=== PATIENT | male | born 1940 | race Caucasian/White ===

== ENCOUNTER 2017-12-12 20:36 | Emergency (ER) | payer OTHER ==
[~2017-12-12] VITALS: Ht 188 cm; Wt 152.0 kg
[~2017-12-12 20:36] MED LIST: CIPRO500 MG PO; FLAGYL250 MG PO; ULTRAM 50MG50 MG PO; ZOFRAN ODT4 MG SL
[2017-12-12] MEDS ORDERED: COLCHICINE 0.6 MG TAB PO STA ×2 (21:08→23:28)
[2017-12-12] MEDS ORDERED: ACETAMINOPHEN 325 MG TAB PO ONE (21:15)
[2017-12-12 21:57] LABS: BASOPHILS % 0.3 % (0.0-1.0); EOSINOPHILS # (AUTO) 0.2 (0.0-0.4); EOSINOPHILS % 1.2 % (0.0-6.0); HEMATOCRIT 46.1 % (38.2-49.6); HEMOGLOBIN 15.1 g/dL (14.0-18.0); LYMPHOCYTES # (AUTO) 1.5 (1.0-3.2); LYMPHOCYTES % 12.2 % (18.0-39.1); MEAN CORPUSCULAR HEMOGLOBIN 29.9 pg (28-32); MEAN CORPUSCULAR HGB CONC 32.8 g/dL (31-35); MEAN CORPUSCULAR VOLUME 91.3 fL (81-99); MONOCYTES # (AUTO) 1.6 (0.2-0.8); MONOCYTES % 13.6 % (4.4-11.3); NEUTROPHILS # (AUTO) 8.7 (2.1-6.9); NEUTROPHILS % 72.3 % (38.7-80.0); PLATELET COUNT 143 x10e3/uL (140-360); RED BLOOD COUNT 5.05 x10e6/uL (4.3-5.7); RED CELL DISTRIBUTION WIDTH 12.7 % (11.7-14.4)
[2017-12-12 22:15] LABS: ALANINE AMINOTRANSFERASE 11 IU/L (0-55); ALBUMIN 3.4 g/dL (3.5-5.0); ALBUMIN/GLOBULIN RATIO 0.9 (0.8-2.0); ALKALINE PHOSPHATASE 59 IU/L (40-150); ANION GAP 15.4 mmol/L (8-16); BLOOD UREA NITROGEN 19 mg/dL (7-26); BUN/CREATININE RATIO 17 (6-25); CALCIUM 9.7 mg/dL (8.4-10.2); CARBON DIOXIDE 27 mmol/L (22-29); CHLORIDE 99 mmol/L (98-107); CREATININE, SERUM 1.14 mg/dL (0.72-1.25); EST GLOMERULAR FILTRATION RATE > 60 ML/MIN (60-); GLUCOSE 133 mg/dL (74-118); POTASSIUM 4.4 mmol/L (3.5-5.1); SODIUM 137 mmol/L (136-145)
--- NOTE | 2017-12-12 22:56 | Diagnostic Imaging Report ---
SHOULDER LEFT COMPLETE Comparison: None Clinical history: Left shoulder pain Findings: Limited by body habitus. Mild acromioclavicular degenerative changes. No acute fracture or dislocation. Impression: No acute bony abnormality Signed by: Dr Roslyn Landry MD on 12/12/2017 10:53 PM
[2017-12-12] MEDS ORDERED: INDOMETHACIN 25 MG CAP PO STA (23:28)
[2017-12-13 00:19] VITALS: BP 165/82
== END 2017-12-13 00:23 | disposition home or self-care (01) ==
LOC: ER 20:36
DX: M79.675 Pain in left toe(s) (principal); M10.072 Idiopathic gout, left ankle and foot
CPT/HCPCS: 36415; 80053; 84550; 85025; 99283

== ENCOUNTER 2018-03-13 06:15 | Inpatient (IN) | payer OTHER ==
[2018-03-12] MEDS: ALBUTEROL SULF 0.083% NEB SOLN 3 ML NEB NEB SCH (19:40)
[2018-03-13] VITALS (16 sets, daily range): BP systolic 94–142; BP diastolic 33–92
[~2018-03-13] VITALS: Ht 188 cm; Wt 166.5 kg
--- OUTSIDE RECORDS SUMMARY | 2018-03-13 06:18 | XMS REPORT | Continuity of Care Document ---
Author Author [facility] Interface Address Unknown Phone Unavailable Problems Problem Status Onset Date Classification Date Reported Comments Source Medications Medication Details Route Status Patient Instructions Ordering Provider Order Date Source Ciprofloxacin Hcl (Cipro) 500 Mg Tablet Twice A Day Active [facility] Metronidazole (Flagyl) 250 Mg Tablet Twice A Day Active [facility] Ondansetron (Zofran Odt) 4 Mg Tab.rapdis Every 6 Hours as needed for Nausea Active [facility] Tramadol Hcl (Ultram 50MG*) 50 Mg Tab Every 6 Hours as needed for Pain Active [facility] Allergies, Adverse Reactions, Alerts Substance Category Reaction Severity Reaction type Status Date Reported Comments Source No Known Drug Allergies Mild Allergy to Substance Active 06/29/2015 [facility] Immunizations Immunization Date Given Site Status Last Updated Comments Source Results Order Name Results Value Reference Range Date Interpretation Comments Source Automated blood basophil count (count/volume) Automated blood basophil count (count/volume) 0.0 0.0 - 0.1 12/12/2017 [facility] Automated blood basophil count as percentage of total leukocytes Automated blood basophil count as percentage of total leukocytes 0.3 0.0 - 1.0 12/12/2017 [facility] Automated blood eosinophil count Automated blood eosinophil count 0.2 0.0 - 0.4 12/12/2017 [facility] Automated blood eosinophil count as percentage of total leukocytes Automated blood eosinophil count as percentage of total leukocytes 1.2 0.0 - 6.0 12/12/2017 [facility] Automated blood hematocrit (volume fraction) Automated blood hematocrit (volume fraction) 46.1 38.2 - 49.6 12/12/2017 [facility] Automated blood lymphocyte count as percentage ot total leukocytes Automated blood lymphocyte count as percentage ot total leukocytes 12.2 18.0 - 39.1 12/12/2017 [facility] Automated blood monocyte count as percentage of total leukocytes Automated blood monocyte count as percentage of total leukocytes 13.6 4.4 - 11.3 12/12/2017 [facility] Automated blood neutrophil count Automated blood neutrophil count 8.7 2.1 - 6.9 12/12/2017 [facility] Automated blood platelet count (count/volume) Automated blood platelet count (count/volume) 143 140 - 360 12/12/2017 [facility] Automated blood segmented neutrophil count as percentage of total leukocytes Automated blood segmented neutrophil count as percentage of total leukocytes 72.3 38.7 - 80.0 12/12/2017 [facility] Automated erythrocyte mean corpuscular hemoglobin (mass per erythrocyte) Automated erythrocyte mean corpuscular hemoglobin (mass per erythrocyte) 29.9 28 - 32 12/12/2017 [facility] Automated erythrocyte mean corpuscular hemoglobin concentration measurement (mass/volume) Automated erythrocyte mean corpuscular hemoglobin concentration measurement (mass/volume) 32.8 31 - 35 12/12/2017 [facility] Automated erythrocyte mean corpuscular volume Automated erythrocyte mean corpuscular volume 91.3 81 - 99 12/12/2017 [facility] Blood erythrocytes automated count (number/volume) Blood erythrocytes automated count (number/volume) 5.05 4.3 - 5.7 12/12/2017 [facility] Blood hemoglobin measurement (moles/volume) Blood hemoglobin measurement (moles/volume) 15.1 14.0 - 18.0 12/12/2017 [facility] Blood leukocytes automated count (number/volume) Blood leukocytes automated count (number/volume) 12.07 4.8 - 10.8 12/12/2017 [facility] Blood lymphocytes count (number/volume) Blood lymphocytes count (number/volume) 1.5 1.0 - 3.2 12/12/2017 [facility] Blood monocytes automated count (number/volume) Blood monocytes automated count (number/volume) 1.6 0.2 - 0.8 12/12/2017 [facility] Estimated glomerular filtration rate (GFR) determination Estimated glomerular filtration rate (GFR) determination null 60 12/12/2017 [facility] Glucose measurement Glucose measurement 133 74 - 118 12/12/2017 [facility] Plasma globulin measurement (mass/volume) Plasma globulin measurement (mass/volume) 3.9 2.3 - 3.5 12/12/2017 [facility] Serum or plasma alanine aminotransferase measurement (enzymatic activity/volume) Serum or plasma alanine aminotransferase measurement (enzymatic activity/volume) 11 0 - 55 12/12/2017 [facility] Serum or plasma albumin measurement (mass/volume) Serum or plasma albumin measurement (mass/volume) 3.4 3.5 - 5.0 12/12/2017 [facility] Serum or plasma albumin/globulin mass ratio Serum or plasma albumin/globulin mass ratio 0.9 0.8 - 2.0 12/12/2017 [facility] Serum or plasma alkaline phosphatase measurement (enzymatic activity/volume) Serum or plasma alkaline phosphatase measurement (enzymatic activity/volume) 59 40 - 150 12/12/2017 [facility] Serum or plasma anion gap Serum or plasma anion gap 15.4 8 - 16 12/12/2017 [facility] Serum or plasma calcium measurement (mass/volume) Serum or plasma calcium measurement (mass/volume) 9.7 8.4 - 10.2 12/12/2017 [facility] Serum or plasma carbon dioxide, total measurement (moles/volume) Serum or plasma carbon dioxide, total measurement (moles/volume) 27 22 - 29 12/12/2017 [facility] Serum or plasma chloride measurement (moles/volume) Serum or plasma chloride measurement (moles/volume) 99 98 - 107 12/12/2017 [facility] Serum or plasma creatinine measurement (mass/volume) Serum or plasma creatinine measurement (mass/volume) 1.14 0.72 - 1.25 12/12/2017 [facility] Serum or plasma potassium measurement (moles/volume) Serum or plasma potassium measurement (moles/volume) 4.4 3.5 - 5.1 12/12/2017 [facility] Serum or plasma protein measurement (mass/volume) Serum or plasma protein measurement (mass/volume) 7.3 6.5 - 8.1 12/12/2017 [facility] Serum or plasma sodium measurement (moles/volume) Serum or plasma sodium measurement (moles/volume) 137 136 - 145 12/12/2017 [facility] Serum or plasma total bilirubin measurement (mass/volume) Serum or plasma total bilirubin measurement (mass/volume) 1.2 0.2 - 1.2 12/12/2017 [facility] Serum or plasma urea nitrogen measurement (mass/volume) Serum or plasma urea nitrogen measurement (mass/volume) 19 7 - 26 12/12/2017 [facility] Serum or plasma urea nitrogen/creatinine mass ratio Serum or plasma urea nitrogen/creatinine mass ratio 17 6 - 25 12/12/2017 [facility] Serum or plasma uric acid measurement (mass/volume) Serum or plasma uric acid measurement (mass/volume) 7.8 4.8 - 8.0 12/12/2017 [facility] Red Cell Distribution Width 12.7 11.7 - 14.4 12/12/2017 [facility] IM GRANULOCYTES % 0.4 0.0 - 1.0 12/12/2017 [facility] Absolute Immature Granulocyte (auto 0.05 0 - 0.1 12/12/2017 [facility] Aspartate Amino Transf (AST/SGOT) 14 5 - 34 12/12/2017 [facility] Serum or plasma amylase measurement (enzymatic activity/volume) Serum or plasma amylase measurement (enzymatic activity/volume) 62 25 - 125 11/16/2017 [facility] Serum or plasma lipase measurement (enzymatic activity/volume) Serum or plasma lipase measurement (enzymatic activity/volume) 19 8 - 78 11/16/2017 [facility] Automated urine sediment leukocyte count by microscopy (number/high power field) Automated urine sediment leukocyte count by microscopy (number/high power field) null 0 - 5 11/16/2017 [facility] Bacteria detection in urine sediment by light microscopy Bacteria detection in urine sediment by light microscopy RARE NONE 11/16/2017 [facility] Epithelial cells detection in urine sediment by light microscopy Epithelial cells detection in urine sediment by light microscopy RARE NONE 11/16/2017 [facility] Erythrocytes detection in urine sediment by light microscopy Erythrocytes detection in urine sediment by light microscopy null 0 - 5 11/16/2017 [facility] Specific gravity of Urine by Test strip Specific gravity of Urine by Test strip 1.025 1.010 - 1.025 11/16/2017 [facility] Urine clarity Urine clarity CLEAR CLEAR 11/16/2017 [facility] Urine color determination Urine color determination YELLOW YELLOW 11/16/2017 [facility] Urine erythrocytes detection Urine erythrocytes detection NEGATIVE NEGATIVE 11/16/2017 [facility] Urine glucose detection Urine glucose detection NEGATIVE NEGATIVE 11/16/2017 [facility] Urine ketones detection by automated test strip Urine ketones detection by automated test strip NEGATIVE NEGATIVE 11/16/2017 [facility] Urine leukocyte esterase detection by dipstick Urine leukocyte esterase detection by dipstick NEGATIVE NEGATIVE 11/16/2017 [facility] Urine nitrite detection Urine nitrite detection NEGATIVE NEGATIVE 11/16/2017 [facility] Urine pH measurement by automated test strip Urine pH measurement by automated test strip 6 5 - 7 11/16/2017 [facility] Urine protein measurement by test strip (mass/volume) Urine protein measurement by test strip (mass/volume) 1+ NEGATIVE 11/16/2017 [facility] Urine total bilirubin measurement (mass/volume) Urine total bilirubin measurement (mass/volume) NEGATIVE NEGATIVE 11/16/2017 [facility] Urine urobilinogen measurement by test strip (mass/volume) Urine urobilinogen measurement by test strip (mass/volume) 0.2 0.2 - 1 11/16/2017 [facility] Vital Signs Vital Sign Value Date Comments Source Encounters Location Location Details Encounter Type Encounter Number Reason For Visit Attending Provider ADM Date DC Date Status Source Departed Emergency Room [id number] CHAD RUBI MD 11/16/2017 11/16/2017 [facility] Departed Emergency Room [id number] ROSANA DAVID MD 12/12/2017 12/13/2017 [facility] Procedures Procedure Code Date Perfomer Comments Source Computed tomography of abdomen and pelvis with contrast [id number] 11/16/2017 [place] [facility]
[2018-03-13] MEDS ORDERED: ACETAMINOPHEN 1000 MG/100 ML IV STA (06:22)
[2018-03-13] MEDS ORDERED: ALBUTEROL SULF 0.083% NEB SOLN 3 ML NEB NEB STA (06:22)
[2018-03-13] MEDS ORDERED: CEFTRIAXONE SOD 1 GM VIAL IV ONE (06:30)
[2018-03-13] MEDS ORDERED: IPRATROPIUM BROMIDE 0.02% 2.5 ML NEB NEB ONE (06:30)
[2018-03-13] MEDS ORDERED: SODIUM CHLORIDE 0.9% 1000ML 1,000 ML IV ONE (06:30)
[2018-03-13] MEDS ORDERED: METHYLPREDNISOLONE SOD SUCC 125 MG/2ML VIAL IV ONE (06:30)
[2018-03-13 06:45] LABS: BASOPHILS % 0.2 % (0.0-1.0); EOSINOPHILS % 0.3 % (0.0-6.0); HEMATOCRIT 45.1 % (38.2-49.6); HEMOGLOBIN 14.2 g/dL (14.0-18.0); LYMPHOCYTES # (AUTO) 0.4 (1.0-3.2); LYMPHOCYTES % 3.9 % (18.0-39.1); MEAN CORPUSCULAR HEMOGLOBIN 29.8 pg (28-32); MEAN CORPUSCULAR HGB CONC 31.5 g/dL (31-35); MEAN CORPUSCULAR VOLUME 94.5 fL (81-99); MONOCYTES % 10.9 % (4.4-11.3); NEUTROPHILS % 83.9 % (38.7-80.0); PLATELET COUNT 135 x10e3/uL (140-360); RED BLOOD COUNT 4.77 x10e6/uL (4.3-5.7); RED CELL DISTRIBUTION WIDTH 13.4 % (11.7-14.4)
--- NOTE | 2018-03-13 06:55 | NUR ---
RECEIVED REPORT FROM HOLDEN STOVER LOG TUMBLER NURSE.
[2018-03-13] MEDS ORDERED: COLCRYS0.6 MG PO (06:57)
[2018-03-13 07:04] LABS: ALBUMIN 3.4 g/dL (3.5-5.0); ALBUMIN/GLOBULIN RATIO 1.1 (0.8-2.0); ANION GAP 15.5 mmol/L (8-16); CALCIUM 8.9 mg/dL (8.4-10.2); CREATININE, SERUM 1.43 mg/dL (0.72-1.25); POTASSIUM 4.5 mmol/L (3.5-5.1)
[2018-03-13 07:11] LABS: CREATINE KINASE MB 1.8 ng/mL (0-5.0)
[2018-03-13 07:32] LABS: B-TYPE NATRIURETIC PEPTIDE2 109.1 pg/mL (0-100)
--- NOTE | 2018-03-13 07:56 | NUR ---
LABORATORY CALLED AND NOTIFIED FOR NEW ORDERS OF PT AND PTT.
[2018-03-13 08:22] LABS: PROTHROMBIN TIME 14.1 seconds (11.9-14.5)
[2018-03-13 08:23] LABS: PARTIAL THROMBOPLASTIN TIME 29.7 seconds (23.8-35.5)
[2018-03-13] MEDS ORDERED: SODIUM CHLORIDE 0.9% 1000ML 1,000 ML IV STA (08:28)
--- NOTE | 2018-03-13 08:28 | Diagnostic Imaging Report ---
EXAMINATION: CHEST SINGLE (PORTABLE) COMPARISON: Chest x-ray report 06/29/2015. Images were not available for comparison. Correlation is made with CT of the abdomen/pelvis performed 11/16/2017 INDICATION: Cough, fever, shortness of breath DISCUSSION: Frontal view of the chest obtained at 0801 hours. HEART AND MEDIASTINUM: The heart is top normal in size. The aorta is mildly ectatic LINES: None. LUNGS: Low lung volumes. Minimal bibasilar atelectasis. No pneumonia or pulmonary edema. PLEURA: No pleural effusion or pneumothorax. 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 BONES AND SOFT TISSUES: No focal osseous lesion. The soft tissues are normal. IMPRESSION: Low lung findings with bibasilar atelectasis. Signed by: Dr. Rio Blood MD on 03/13/2018 8:25 AM
[2018-03-13] MEDS: AZITHROMYCIN 500MG/NS 250 ML 250 ML IV SCH (08:45)
[2018-03-13] MEDS: OSELTAMIVIR PHOSPHATE 75 MG CAP PO SCH ×2 (09:08→17:08)
--- NOTE | 2018-03-13 09:10 | NUR ---
MEDICAL LANGUAGE SPECIALIST CALLED FOR VENOUS DOPPLER ORDER BY [facility].
[2018-03-13 09:18] LABS: BAND NEUTROPHILS % (MANUAL) 18 %; LYMPHOCYTES % (MANUAL) 7 % (19-48); MONOCYTES % (MANUAL) 7 % (3.4-9.0); NEUTROPHILS % (MANUAL) 68 % (40-74)
[2018-03-13 09:19] LABS: PLATELET ESTIMATE ADEQUATE; PLATELET MORPHOLOGY COMMENT NORMAL; RBC MORPHOLOGY COMMENT NORMAL
[2018-03-13] MEDS ORDERED: IOPAMIDOL 370 MG/ML 200 ML INFUS..BTL INJ ONE (09:20)
[2018-03-13] MEDS ORDERED: SODIUM CHLORIDE 0.9% 50ML 50 ML ONE (09:20)
[2018-03-13 10:23] LABS: ABG PCO2 58 mmHg (41-51); ABG PH 7.26 (7.31-7.41)
[2018-03-13 10:24] LABS: ABG HCO3 26 mmol/L (23-28); ABG PO2 108 mmHg (80-105)
--- NOTE | 2018-03-13 10:45 | Diagnostic Imaging Report ---
CT chest pulmonary embolism protocol CPT code: 04719 INDICATION: Fall, syncope, shortness of breath TECHNIQUE: Thin collimation axial images obtained through the level of the pulmonary arteries with additional imaging through the chest following the uneventful administration of 100 cc of low osmolar, nonionic intravenous contrast. Images reconstructed into coronal and sagittal MIPs for complete evaluation of the tortuous and overlapping pulmonary vascular structures and to reduce patient radiation dose. RADIATION DOSE: Total DLP: 598.4 mGy*cm Estimated effective dose: (DLP x 0.015 x size factor) mSv CTDIvol has been reviewed. It is below the limits set by the Radiation Protocol Committee (RPC). COMPARISON: CT abdomen 11/16/2017. High-resolution CT chest 07/31/2010 FINDINGS: Pulmonary artery: No filling defects are appreciated within the main, left, right, lobar or visualized segmental pulmonary arteries to suggest embolism. The main pulmonary artery measures 4 cm in diameter. Aorta: The ascending aorta measures 3.7 cm in diameter. The descending aorta measures 3.0 cm in diameter. No evidence of dissection. Lymph nodes: No enlarged axillary, supraclavicular lymph nodes. Lymph nodes in the AP window measure up to 12 mm. No enlarged subcarinal lymph nodes. Hilar lymph nodes are mildly prominent. A left hilar lymph node measures 1.1 cm. A right hilar lymph node measures 10 mm. Subcarinal lymph node measures 10 mm in short axis. Thyroid: Normal in size without mass in the visualized parenchyma. Mediastinum: There are prominent pericardial fat pads. The heart is top normal in size. No pericardial effusion. There are scattered after is chronic calcifications. The esophagus is collapsed. Airways: Mild tracheobronchomalacia. No intraluminal filling defects. Lungs: Right Lung: Diffusely hyperinflated. There are more subsegmental airspace opacities in the lower lobe, particularly over the diaphragm. There is groundglass attenuation in the medial aspect of the upper lobe and diffuse bronchial wall thickening. Left Lung: Diffusely hyperinflated. There are new patchy airspace opacities in the base of the lower lobe. There are groundglass opacities in the posterior aspect of the upper lobe abutting the major fissure. There is diffuse mild bronchial wall thickening. Pleura: No pleural effusion or pleural based mass. Eventration of the right diaphragm is stable. Abdomen: A cyst in the upper pole of the right kidney measures 6 cm and is stable. There are calcified granulomata in the liver and spleen. There is fatty atrophy of the pancreas with stable punctate calcification in the head. No soft tissue mass. Bones: Mild degenerative changes of the spine. There are a few scattered bone islands in the right shoulder and left humeral head. No evidence of fracture. Soft tissues: Right gynecomastia is stable. IMPRESSION: 1. No evidence of pulmonary embolus. Enlarged main pulmonary artery is suggestive of pulmonary artery hypertension. No aortic dissection. 2. Increasing bibasilar airspace opacities are suggestive of pneumonia. Please correlate with signs/symptoms of infection. Prominent mediastinal and hilar lymph nodes are likely reactive to an infectious/inflammatory process. 3. Stable eventration of the right diaphragm. 4. COPD and mild tracheobronchomalacia. 5. Healed granulomatous inflammation. Stable right renal cyst. Signed by: Dr. Rio Blood MD on 03/13/2018 10:41 AM
[2018-03-13 10:56] LABS: ABG PCO2 59 mmHg (41-51); ABG PH 7.27 (7.31-7.41)
[2018-03-13 10:57] LABS: ABG HCO3 27 mmol/L (23-28); ABG PO2 96 mmHg (80-105)
[2018-03-13] MEDS ORDERED: MORPHINE SULFATE 2 MG/ML SYR IV PRN (11:00)
--- NOTE | 2018-03-13 11:21 | NUR ---
RT NOTIFIED FOR SCHEDULED BREATHING TREATMENTS.
[2018-03-13] MEDS: SODIUM CHLORIDE 0.9% 1000ML 1,000 ML IV SCH ×2 (11:30→20:27)
[2018-03-13] MEDS: FAMOTIDINE 20 MG/2 ML VIAL IV SCH ×2 (11:30→23:34)
[2018-03-13] MEDS: IPRATROPIUM BROMIDE 0.02% 2.5 ML NEB NEB SCH ×4 (11:35→23:15)
[2018-03-13] MEDS: ALBUTEROL SULF 0.083% NEB SOLN 3 ML NEB NEB SCH ×3 (11:35→23:20)
[2018-03-13] MEDS: DOXYCYCLINE 100MG/NS 100ML 100 ML IV SCH (13:24)
[2018-03-13 15:58] LABS: CREATINE KINASE MB 2.3 ng/mL (0-5.0)
[2018-03-13 16:14] LABS: ABG HCO3 25 mmol/L (23-28); ABG PCO2 54 mmHg (41-51); ABG PH 7.28 (7.31-7.41); ABG PO2 104 mmHg (80-105)
[2018-03-13] MEDS: COLCHICINE 0.6 MG TAB PO SCH (17:08)
--- NOTE | 2018-03-13 17:51 | Consultation ---
DATE OF CONSULTATION: PULMONARY CONSULTATION REASON FOR THE CONSULT: Shortness of breath and influenza with respiratory failure. HPI: Mr. Chatman is a 77-year-old male who presented to the emergency room with generalized weakness, difficulty breathing, and hypoxia. His reported that they came back from cruise yesterday which was 03/12/2018; and after coming from the cruise, he started having coughing. He was feeling weak, short of breath. He was like this all night. They had a nap, and then this morning when he woke up, he was extremely weak, was unable to walk. He usually moves around in a motorized wheelchair. In the emergency room, patient underwent a CTA of the chest which did not show any pulmonary embolism, and influenza was positive. Possibly, there were some airspace opacities. He denies any chest pain. He is arousable but sleepy. He is following all commands. He knows where he is. Maximum temperature is 102.8. REVIEW OF SYSTEMS GENERAL: Was having fever and chills. HEAD: Denies any head trauma. ENT: Denies any earache. CVS: Denies any chest pain. RESPIRATORY: Shortness of breath. GI: Denies any nausea or vomiting. The rest of the review systems is negative except as in HPI. PAST MEDICAL HISTORY: Obesity, hypertension, hyperlipidemia. He has never been diagnosed with sleep apnea. PAST SURGICAL HISTORY: Unknown. FAMILY AND SOCIAL HISTORY: Does not smoke. Does not drink. PHYSICAL EXAMINATION VITALS: Temperature 100.1, T-max of 102.8. HEENT: Head atraumatic, normocephalic. NECK: Supple. CHEST: No wheezing. Crackles on the bases. HEART: S1, S2 audible. ABDOMEN: Soft, nontender. EXTREMITIES: No pedal edema. NEUROLOGICAL: He is arousable, following commands, opening his eyes. LABS: White count of 9,000, hemoglobin 14.2, platelets 135. Chemistry, sodium 138, potassium 4.5, bicarb 25, chloride 102, creatinine 1.43. Blood gas, pH of 7.26, pCO2 of 58 initially and now it is pCO2 of 59 with pH of 7.27. CK is 839. CK-MB is normal. ASSESSMENT: Mr. Chatman is a 77-year-old male, presented with worsening shortness of breath, influenza positive, creatine phosphokinase is high. IMPRESSION 1. Acute hypoxic and hypercapnic respiratory failure. 2. Influenza. 3. Possibility of pneumonia, bibasilar, recently came from cruise. 4. Morbid obesity. 5. High likelihood of having obstructive sleep apnea. Patient's reported that patient had episodes of apnea at night. PLAN 1. Continue the patient on Tamiflu. 2. I will continue the patient on BiPAP. ABG after 3 hours of use of BiPAP has not shown any worsening of hypercapnia; however, there is no improvement. Patient's mental status is better. He is still awake and following commands. I will continue the patient on BiPAP for now, watch closely; and if the hypercapnia gets worse, he will need to be intubated. This was discussed in detail with patient's at bedside. 3. Continue the patient on nebulizer treatment. 4. Agree with IV Rocephin and azithromycin. I will also give a dose of doxycycline and check for Legionnaire's disease. 5. Mild acute kidney injury, likely due to the dehydration because of pneumonia. I will reduce the fluids to 100 mL an hour. Chest x-ray as well as a CT chest reviewed. No PE and possible pneumonia. Critical care time spent 50 minutes. Job#: [id number] NAKITA
--- NOTE | 2018-03-13 17:52 | NUR ---
PATIENT TAKEN OFF BIPAP FOR PO MEDS. PUT ON NC AT 5 L AND SATS WERE AT AROUND 83-86%. BACK ON BIPAP WITH O2 SATS AT 100%
[2018-03-13] MEDS ORDERED: CEFTRIAXONE SOD 1 GM VIAL IV SCH (19:00)
[2018-03-13] MEDS: CEFTRIAXONE SOD 1 GM/NS 50 ML 50 ML IV SCH (20:40)
[2018-03-14] VITALS (17 sets, daily range): BP systolic 86–133; BP diastolic 35–77
[2018-03-14] MEDS: DOXYCYCLINE 100MG/NS 100ML 100 ML IV SCH ×2 (01:54→13:22)
[2018-03-14 04:27] LABS: BASOPHILS % 0.1 % (0.0-1.0); HEMATOCRIT 41.7 % (38.2-49.6); HEMOGLOBIN 13.1 g/dL (14.0-18.0); LYMPHOCYTES # (AUTO) 0.5 (1.0-3.2); LYMPHOCYTES % 5.1 % (18.0-39.1); MEAN CORPUSCULAR HEMOGLOBIN 29.5 pg (28-32); MEAN CORPUSCULAR HGB CONC 31.4 g/dL (31-35); MEAN CORPUSCULAR VOLUME 93.9 fL (81-99); MONOCYTES # (AUTO) 0.8 (0.2-0.8); MONOCYTES % 7.5 % (4.4-11.3); NEUTROPHILS # (AUTO) 8.8 (2.1-6.9); NEUTROPHILS % 86.8 % (38.7-80.0); PLATELET COUNT 104 x10e3/uL (140-360); RED BLOOD COUNT 4.44 x10e6/uL (4.3-5.7); RED CELL DISTRIBUTION WIDTH 13.4 % (11.7-14.4)
[2018-03-14] MEDS: IPRATROPIUM BROMIDE 0.02% 2.5 ML NEB NEB SCH ×6 (04:30→23:30)
[2018-03-14] MEDS: ALBUTEROL SULF 0.083% NEB SOLN 3 ML NEB NEB SCH ×6 (04:30→23:30)
[2018-03-14 04:53] LABS: CREATINE KINASE MB 2.3 ng/mL (0-5.0)
[2018-03-14 05:18] LABS: ALBUMIN 2.8 g/dL (3.5-5.0); ANION GAP 14.7 mmol/L (8-16); CALCIUM 8.4 mg/dL (8.4-10.2); CHOL/HDL RATIO 2.4 (3.9-4.7); CREATININE, SERUM 1.24 mg/dL (0.72-1.25); POTASSIUM 4.7 mmol/L (3.5-5.1)
--- NOTE | 2018-03-14 06:30 | Diagnostic Imaging Report ---
EXAM: CHEST SINGLE (PORTABLE), AP 1 view INDICATION: Shortness of breath COMPARISON: AP view of the chest March 13, 2018 FINDINGS: LINES/TUBES: None LUNGS: Low inspiration with bibasilar atelectasis. PLEURA: No effusions or pneumothorax. HEART AND MEDIASTINUM: Normal size and contour. BONES AND SOFT TISSUES: No acute findings. IMPRESSION: Low inspiration with bibasilar atelectasis. Signed by: Dr. Michelle Alexander M.D. on 03/14/2018 6:26 AM
[2018-03-14] MEDS: SODIUM CHLORIDE 0.9% 1000ML 1,000 ML IV SCH ×2 (07:37→18:15)
[2018-03-14] MEDS: CEFTRIAXONE SOD 1 GM/NS 50 ML 50 ML IV SCH ×2 (08:45→19:53)
[2018-03-14] MEDS: OSELTAMIVIR PHOSPHATE 75 MG CAP PO SCH ×2 (10:01→16:39)
[2018-03-14] MEDS: AZITHROMYCIN 500MG/NS 250 ML 250 ML IV SCH (10:01)
[2018-03-14] MEDS: COLCHICINE 0.6 MG TAB PO SCH ×2 (10:12→16:39)
[2018-03-14] MEDS: FAMOTIDINE 20 MG/2 ML VIAL IV SCH ×2 (11:51→22:56)
[2018-03-14] MEDS: ONDANSETRON HCL INJ 2 MG/ML VIAL IV PRN (14:16)
[2018-03-14] MEDS: MORPHINE SULFATE INJ 4 MG/ML INJ IV PRN (14:16)
[2018-03-14 18:04] LABS: ABG HCO3 25 mmol/L (23-28); ABG PCO2 53 mmHg (41-51); ABG PH 7.28 (7.31-7.41); ABG PO2 119 mmHg (80-105)
--- NOTE | 2018-03-14 18:14 | NUR ---
Nutrition Screen Note RD Recommendation for Physician: -Rec advancing to cardiac diet as medically appropriate Plan of Care: RD following, monitoring for tolerance and adequacy Nutrition reason for involvement: RN Consult no reason stated Primary Diagnose(s): influenza with respiratory failure PMH: Obesity, hypertension, hyperlipidemia. Ht: 74in Wt: 371.06lb BMI: 47.6kg/m2 IBW: 190lb RD Assessment: (03/14) Chart reviewed. Labs and meds reviewed. 77yo M, who is admitted for weakness and SOB. Visited pt in the room. Pt reports eating well without any weight loss [employer]DI[employer]. No GI complains noted. LBM 03/13. Pt denies any chewing or swallowing difficulty. Pt is eager to resume diet. Will continue to monitor and follow. Current Diet: NPO Malnutrition Evaluation (03/14/18) The patient does not meet criteria for a specified degree of malnutrition at this time. Will re-evaluate at follow-up as appropriate. Diet Education Needs Assessment: Diet education not indicated. Nutrition Care Level: low Signed: Aimee Rodrigues, , RD, LD
--- NOTE | 2018-03-14 19:00 | NUR ---
Report received. Assumed care. Assessment done. See interventions.
--- NOTE | 2018-03-14 19:26 | NUR ---
Incontinent of urine. Sonya care done and partial linen change.
[2018-03-15] VITALS (25 sets, daily range): BP systolic 81–144; BP diastolic 31–86
[2018-03-15] MEDS: SODIUM CHLORIDE 0.9% 1000ML 1,000 ML IV SCH ×3 (00:10→20:38)
[2018-03-15] MEDS: DOXYCYCLINE 100MG/NS 100ML 100 ML IV SCH ×2 (01:15→13:57)
[2018-03-15] MEDS: ALBUTEROL SULF 0.083% NEB SOLN 3 ML NEB NEB SCH ×6 (03:30→23:30)
[2018-03-15] MEDS: IPRATROPIUM BROMIDE 0.02% 2.5 ML NEB NEB SCH ×6 (03:30→23:30)
--- NOTE | 2018-03-15 05:00 | NUR ---
Incontinent of urine. Sonya care done. Partial linens changed.
[2018-03-15] MEDS: CEFTRIAXONE SOD 1 GM/NS 50 ML 50 ML IV SCH ×2 (06:22→18:45)
[2018-03-15] MEDS: MORPHINE SULFATE INJ 4 MG/ML INJ IV PRN (09:10)
[2018-03-15] MEDS: ONDANSETRON HCL INJ 2 MG/ML VIAL IV PRN (09:10)
[2018-03-15] MEDS: AZITHROMYCIN 500MG/NS 250 ML 250 ML IV SCH (09:17)
[2018-03-15] MEDS: OSELTAMIVIR PHOSPHATE 75 MG CAP PO SCH ×2 (09:30→17:06)
[2018-03-15] MEDS: COLCHICINE 0.6 MG TAB PO SCH ×2 (09:30→17:06)
--- NOTE | 2018-03-15 10:00 | NUR ---
Dr Berumen to bedside; Dr Gamboa preparing to place CVL.
[2018-03-15 10:34] LABS: BASOPHILS % 0.2 % (0.0-1.0); EOSINOPHILS % 0.2 % (0.0-6.0); HEMATOCRIT 42.6 % (38.2-49.6); LYMPHOCYTES # (AUTO) 1.4 (1.0-3.2); LYMPHOCYTES % 23.1 % (18.0-39.1); MEAN CORPUSCULAR HEMOGLOBIN 29.5 pg (28-32); MEAN CORPUSCULAR HGB CONC 30.5 g/dL (31-35); MEAN CORPUSCULAR VOLUME 96.8 fL (81-99); MONOCYTES # (AUTO) 0.7 (0.2-0.8); MONOCYTES % 12.4 % (4.4-11.3); NEUTROPHILS # (AUTO) 3.8 (2.1-6.9); NEUTROPHILS % 63.8 % (38.7-80.0); PLATELET COUNT 106 x10e3/uL (140-360); RED CELL DISTRIBUTION WIDTH 13.8 % (11.7-14.4)
[2018-03-15] MEDS: FAMOTIDINE 20 MG/2 ML VIAL IV SCH (10:41)
[2018-03-15 10:49] LABS: ABG HCO3 26 mmol/L (23-28); ABG PCO2 59 mmHg (41-51); ABG PH 7.25 (7.31-7.41); ABG PO2 114 mmHg (80-105)
[2018-03-15 10:50] LABS: ANION GAP 13.1 mmol/L (8-16); BLOOD UREA NITROGEN 28 mg/dL (7-26); BUN/CREATININE RATIO 25 (6-25); CALCIUM 8.1 mg/dL (8.4-10.2); CARBON DIOXIDE 23 mmol/L (22-29); CHLORIDE 109 mmol/L (98-107); EST GLOMERULAR FILTRATION RATE > 60 ML/MIN (60-); GLUCOSE 79 mg/dL (74-118); POTASSIUM 5.1 mmol/L (3.5-5.1); SODIUM 140 mmol/L (136-145)
--- NOTE | 2018-03-15 11:00 | NUR ---
Dr Raman to bedside; patient and updated on patient condition and plan of care; state understanding and agreeable with treatment plan.
--- NOTE | 2018-03-15 12:09 | Diagnostic Imaging Report ---
PROCEDURE:ULTRASOUND GUIDANCE FOR VASCULAR ACCESS COMPARISON:None. INDICATIONS:CVC PLACEMENT FINDINGS:The right internal jugular vein is noted to be patent. Ultrasound guidance was utilized for access for central line placement. CONCLUSION:Patent right internal jugular vein. Successful ultrasound guidance for central line placement. Khalif Gamboa D.O. Dictated by: Khalif Gamboa D.O. on 03/15/2018 at 12:20 Electronically approved by: Khalif Gamboa D.O. on 03/15/2018 at 12:20
--- NOTE | 2018-03-15 12:17 | Diagnostic Imaging Report ---
This report includes an Addendum and supersedes previous reports for this exam. PROCEDURE:NON-TUNNELLED CVC CATH PLACMNT COMPARISON:None. INDICATIONS: CVC PLACEMENT COMPLICATIONS: Patient in need of IV access MEDICATIONS: 1% lidocaine BLOOD LOSS: Less than 2 cc PROCEDURE: The right internal jugular vein is noted to be patent. Full barrier sterile technique was performed. Local anesthesia with 1% lidocaine was administered. Utilizing ultrasound guidance, puncture of the right internal jugular vein was performed with a 21 gauge skinny needle. Through the needle a 0.018 inch wire was placed and then a micropuncture sheath placed over the wire. Through the micropuncture sheath a 0.035 inch Amplatz Super Stiff wire was advanced centrally without resistance. Dilatation with a 7 [place] dilator was accomplished. A 7 [place] triple-lumen Arrow 20 cm long central venous catheter was then placed over the Amplatz wire. All 3 ports easily flushed. A post procedure chest x-ray was ordered. Patient tolerated procedure well. CONCLUSION: Successful ultrasound-guided central line placement. Khalif Gamboa D.O. Dictated by: Khalif Gamboa D.O. on 03/15/2018 at 12:27 Electronically approved by: Khalif Gamboa D.O. on 03/15/2018 at 12:27 ADDENDUM: Ultrasound was utilized revealing the right internal jugular vein to be patent. A permanent recording was saved to the medical record. Khalif Gamboa D.O. Dictated by: Khalif Gamboa D.O. on 03/21/2018 at 10:17 Electronically approved by: Khalif Gamboa D.O. on 03/21/2018 at 10:17
--- NOTE | 2018-03-15 12:30 | Diagnostic Imaging Report ---
EXAM: CHEST SINGLE (PORTABLE), AP 1 view INDICATION: Central venous catheter placement. COMPARISON: Chest radiograph 03/14/2018. FINDINGS: LINES/TUBES: Interval placement of a right IJ non-tunneled central line with catheter tip terminating at the expected location of the cavoatrial junction. LUNGS: Low lung volumes which decreases sensitivity and specificity for pathology. There is perihilar fullness and indistinctness of the pulmonary vasculature. Patchy opacities are present in the lower lung zones. PLEURA: Small right pleural effusion. No evidence of pneumothorax. HEART AND MEDIASTINUM: Unremarkable cardiomediastinal silhouette. BONES AND SOFT TISSUES: No acute findings. IMPRESSION: Interval placement of right IJ central line terminating at the expected location of the cavoatrial junction. No evidence of pneumothorax. Low lung volumes with likely mild pulmonary interstitial edema. Small right pleural effusion. Patchy bibasilar opacities, likely atelectasis. Signed by: Dr. Byron Tena MD on 03/15/2018 12:27 PM
--- NOTE | 2018-03-15 16:08 | NUR ---
Bath, shampoo, gown and linen change provided; exertional dyspnea noted; returned to baseline quickly with immobility.
--- NOTE | 2018-03-15 16:20 | NUR ---
Patient from 10L high flow NC to Bipap.
--- NOTE | 2018-03-15 17:07 | NUR ---
CHG bath provided.
[2018-03-15] MEDS ORDERED: HYDROCODONE/APAP 5MG-325MG TAB ONE (20:17)
[2018-03-15] MEDS ORDERED: LIDOCAINE 5% PATCH TP ONE (20:18)
[2018-03-15] MEDS: LIDOCAINE 5% PATCH TP SCH (20:38)
[2018-03-15] MEDS: HYDROCODONE/APAP 5MG-325MG TAB PO PRN (20:38)
[2018-03-15] MEDS: HEPARIN SOD (PORCINE) 5,000 UNIT/ML VIAL SC SCH (21:58)
[2018-03-16] VITALS (22 sets, daily range): BP systolic 77–167; BP diastolic 37–88
[2018-03-16] MEDS: FAMOTIDINE 20 MG/2 ML VIAL IV SCH ×2 (00:07→11:30)
[2018-03-16] MEDS ORDERED: DOXYCYCLINE 100MG/NS 100ML 100 ML IV ONE (00:26)
[2018-03-16] MEDS: DOXYCYCLINE 100MG/NS 100ML 100 ML IV SCH ×2 (01:15→13:15)
[2018-03-16] MEDS: IPRATROPIUM BROMIDE 0.02% 2.5 ML NEB NEB SCH ×6 (03:00→22:12)
[2018-03-16] MEDS: ALBUTEROL SULF 0.083% NEB SOLN 3 ML NEB NEB SCH ×6 (03:00→22:12)
[2018-03-16] MEDS: SODIUM CHLORIDE 0.9% 1000ML 1,000 ML IV SCH ×2 (05:05→13:30)
[2018-03-16 05:30] LABS: BASOPHILS % 0.2 % (0.0-1.0); EOSINOPHILS % 0.7 % (0.0-6.0); HEMATOCRIT 41.5 % (38.2-49.6); HEMOGLOBIN 12.7 g/dL (14.0-18.0); LYMPHOCYTES # (AUTO) 1.6 (1.0-3.2); LYMPHOCYTES % 37.3 % (18.0-39.1); MEAN CORPUSCULAR HEMOGLOBIN 29.5 pg (28-32); MEAN CORPUSCULAR HGB CONC 30.6 g/dL (31-35); MEAN CORPUSCULAR VOLUME 96.5 fL (81-99); MONOCYTES # (AUTO) 0.6 (0.2-0.8); NEUTROPHILS # (AUTO) 2.1 (2.1-6.9); NEUTROPHILS % 48.3 % (38.7-80.0); PLATELET COUNT 105 x10e3/uL (140-360); RED CELL DISTRIBUTION WIDTH 13.8 % (11.7-14.4)
[2018-03-16 05:55] LABS: ANION GAP 11.8 mmol/L (8-16); BLOOD UREA NITROGEN 26 mg/dL (7-26); BUN/CREATININE RATIO 23 (6-25); CALCIUM 7.9 mg/dL (8.4-10.2); CARBON DIOXIDE 26 mmol/L (22-29); CHLORIDE 108 mmol/L (98-107); CREATININE, SERUM 1.13 mg/dL (0.72-1.25); EST GLOMERULAR FILTRATION RATE > 60 ML/MIN (60-); GLUCOSE 86 mg/dL (74-118); POTASSIUM 4.8 mmol/L (3.5-5.1); SODIUM 141 mmol/L (136-145)
[2018-03-16] MEDS: CEFTRIAXONE SOD 1 GM/NS 50 ML 50 ML IV SCH ×2 (07:30→18:34)
[2018-03-16] MEDS: OSELTAMIVIR PHOSPHATE 75 MG CAP PO SCH ×2 (09:00→17:29)
[2018-03-16] MEDS: HEPARIN SOD (PORCINE) 5,000 UNIT/ML VIAL SC SCH ×2 (09:00→21:00)
[2018-03-16] MEDS: LIDOCAINE 5% PATCH TP SCH (09:00)
[2018-03-16] MEDS: COLCHICINE 0.6 MG TAB PO SCH ×2 (09:00→17:29)
[2018-03-16] MEDS: AZITHROMYCIN 500MG/NS 250 ML 250 ML IV SCH (09:00)
[2018-03-16] MEDS ORDERED: SODIUM CHLORIDE 0.9% 250ML 250 ML ONE (09:48)
[2018-03-16] MEDS: HYDROCODONE/APAP 5MG-325MG TAB PO PRN (19:53)
[2018-03-16 20:36] LABS: ABG HCO3 28 mmol/L (23-28); ABG PCO2 65 mmHg (41-51); ABG PH 7.25 (7.31-7.41); ABG PO2 123 mmHg (80-105)
[2018-03-17] VITALS (16 sets, daily range): BP systolic 98–172; BP diastolic 49–93
[2018-03-17] MEDS: FAMOTIDINE 20 MG/2 ML VIAL IV SCH (00:18)
[2018-03-17] MEDS: DOXYCYCLINE 100MG/NS 100ML 100 ML IV SCH (00:58)
[2018-03-17] MEDS: IPRATROPIUM BROMIDE 0.02% 2.5 ML NEB NEB SCH ×6 (02:13→23:02)
[2018-03-17] MEDS: ALBUTEROL SULF 0.083% NEB SOLN 3 ML NEB NEB SCH ×6 (02:13→23:02)
[2018-03-17] MEDS: CEFTRIAXONE SOD 1 GM/NS 50 ML 50 ML IV SCH ×2 (07:00→19:00)
[2018-03-17] MEDS: LIDOCAINE 5% PATCH TP SCH (09:00)
[2018-03-17] MEDS: COLCHICINE 0.6 MG TAB PO SCH ×2 (09:00→17:00)
[2018-03-17] MEDS: HEPARIN SOD (PORCINE) 5,000 UNIT/ML VIAL SC SCH ×2 (09:00→21:00)
[2018-03-17] MEDS: DOXYCYCLINE HYCLATE TABLET 100 MG TAB PO SCH ×2 (09:00→17:00)
[2018-03-17] MEDS: OSELTAMIVIR PHOSPHATE 75 MG CAP PO SCH ×2 (09:00→17:00)
--- NOTE | 2018-03-17 09:12 | Diagnostic Imaging Report ---
EXAM: CHEST SINGLE (PORTABLE), AP 1 view INDICATION: Shortness of breath. COMPARISON: Chest radiograph 03/15/2017. FINDINGS: LINES/TUBES: Right IJ non-tunneled central line with catheter tip terminating near the cavoatrial junction. LUNGS: Low lung volumes which decreases sensitivity and specificity for pathology. There is perihilar fullness and indistinctness of the pulmonary vasculature. Patchy opacities are present in the lower lung zones. PLEURA: Small bilateral pleural effusions. No evidence of pneumothorax. HEART AND MEDIASTINUM: Unremarkable cardiomediastinal silhouette. BONES AND SOFT TISSUES: No acute findings. IMPRESSION: Low lung volumes with likely mild pulmonary interstitial edema and small bilateral pleural effusions. Patchy bibasilar opacities, likely atelectasis. Signed by: Dr. Byron Tena MD on 03/17/2018 9:09 AM
--- NOTE | 2018-03-17 10:46 | Progress Note ---
DATE: March 17, 2018 MEDICINE PROGRESS NOTE I am covering for Dr. Berumen. SUBJECTIVE: Patient is doing much better today. He is being treated for flu and pneumonia. He is on BiPAP during his sleep time. Chest x-ray continues with pulmonary edema. He is currently in bed very weak. OBJECTIVE VITAL SIGNS: Temperature is 98.9, pulse 58, respiratory rate 22, blood pressure 118/80, pulse ox 99%. He is currently on BiPAP. GENERAL: Not in acute distress. Alert and oriented times 3. Cooperative on examination. HEENT: Head is normocephalic and atraumatic. Eyes: Pupils equal, round and reactive to light bilaterally. Extraocular movements intact bilaterally. NECK: Supple. Good range of motion. Throat with no evidence of any erythema or exudates in the posterior pharynx. Has poor dentition. PULMONARY: Clear to auscultation bilaterally. No wheezing. No rales. No rhonchi. No crackles appreciated. CARDIOVASCULAR: Positive S1 and S2. No murmurs, rubs or gallops appreciated. ABDOMEN: Soft, nondistended and nontender to palpation. Bowel sounds present. MUSCULOSKELETAL: Strength is 5/5 throughout. No evidence of any muscle deficit on examination. No weakness appreciated. NEUROLOGICAL: Cranial nerves II-XII are grossly intact. No evidence of any neurological deficits on exam. SKIN: Intact. Warm to touch. Good cap refill. PSYCHIATRIC: Normal affect and mood. EXTREMITIES: No edema. Good range of motion throughout. White count is 4.2, hemoglobin 12.7, hematocrit is 41.5, and platelets of 105,000. Coagulation: PT 14, INR 1 and PTT 29.7. Chemistry: Sodium 141, potassium 4.8, chloride 108, bicarb 23, anion gap of 11, BUN 26, creatinine 1.1. Flu positive. Group strep negative. Urine legionella antigen negative. MICROBIOLOGY: Blood cultures negative. Throat cultures are negative. IMAGING STUDIES: Chest x-ray from this morning on March 17, 2018, shows consistency of pleural effusion. IMPRESSION 1. Acute hypoxic and hypercapnic respiratory failure. 2. Influenza flu positive. 3. Community-acquired pneumonia. 4. Morbid obesity. 5. Obstructive sleep apnea. 6. Obesity hypoventilation syndrome. PLAN: At this time, chest x-ray is consistent with pulmonary edema. Will start on Lasix 40 mg IV t.i.d. times 3 doses. Get chest x-ray in the morning. Repeat labs in the morning as well. Continue with IV antibiotics and Tamiflu. Pulmonary is following accordingly. His cultures have come back to be negative. Will discontinue IV fluids and heart-healthy diet. Get PT and OT eval. The patient is stable. He can be transferred to [facility]. Job#: [id number] JA
[2018-03-17 11:32] LABS: ABG HCO3 29 mmol/L (23-28); ABG PCO2 61 mmHg (41-51); ABG PH 7.29 (7.31-7.41); ABG PO2 115 mmHg (80-105)
--- NOTE | 2018-03-17 13:00 | NUR ---
PATIENT INCONTINENT OF LARGE, BROWN BOWEL MOVEMENT
--- NOTE | 2018-03-17 13:30 | NUR ---
BEDBATH GIVEN TO PATIENT AND TOLERATED WELL. SITTING UP IN CHAIR NOW AND TOLERATING WELL. RESPIRATIONS ARE EVEN AND UNLABORED. ON HI-KAYLA AT 7 LITERS AND TOLERATING WELL WITH 02 SATS AT 98%.
--- NOTE | 2018-03-17 13:45 | NUR ---
18 KORE[place] ROY CATHETER INSERTED AND 100CC OF BRIGHT RED BLOOD RECEIVED IN ROY CATHETER BAg. No difficulty or resistance encountered while inserting. at bedside.
[2018-03-17] MEDS: HYDROCODONE/APAP 5MG-325MG TAB PO PRN ×2 (14:20→20:45)
[2018-03-17] MEDS: FUROSEMIDE INJ 10 MG/ML 4 ML VIAL IV SCH ×2 (14:20→22:00)
--- NOTE | 2018-03-17 15:49 | NUR ---
Dr. Flores's office called regarding urology consult for hematuria and blood clots in Card catheter and I spoke to Juani. Says that Dr. Mony Flores or Dr. Landeros will be seeing patient
[2018-03-17] MEDS: FAMOTIDINE 20 MG TAB PO SCH (17:00)
--- NOTE | 2018-03-17 19:00 | NUR ---
inquiring whether urologist will be here to see patient and another call placed to Dr. Flores's office.
--- NOTE | 2018-03-17 19:15 | NUR ---
Dr. Landeros returned call back and orders received for stat CT of Abdomen and Pelvis to check for Card catheter placement.
--- NOTE | 2018-03-17 19:30 | NUR ---
Received patient hemodynamically stable, present, both anxious because of the hematuria. On Bipap saturating well, vitals stable. Reassured, awaiting ct abd and pelvis as ordered
--- NOTE | 2018-03-17 20:30 | NUR ---
Patient back from the ct, stable, had a large BM, cleaned and repositioned. Gross hematuria, patient reassured, awaiting CT results. Pain medicine administered as prescribed
--- NOTE | 2018-03-17 21:53 | Diagnostic Imaging Report ---
EXAM: CT Abdomen and Pelvis WITHOUT contrast INDICATION: Check Card catheter position. COMPARISON: Chest CT 03/13/2018 TECHNIQUE: Abdomen and pelvis were scanned utilizing a multidetector helical scanner from the lung base to the pubic symphysis without administration of IV contrast. Absence of intravenous contrast decreases sensitivity for detection of focal lesions and vascular pathology. Coronal and sagittal reformations were obtained. Routine protocol was performed. IV CONTRAST: None ORAL CONTRAST: Water COMPLICATIONS: None RADIATION DOSE: Total DLP: 1648 mGy*cm Estimated effective dose: (DLP x 0.015 x size factor) mSv Dose modulation, iterative reconstruction, and/or weight based adjustment of the mA/kV was utilized to reduce the radiation dose to as low as reasonably achievable. FINDINGS: LINES and TUBES: None. LOWER THORAX: Patchy bilateral lower lobe airspace opacities and right middle lobe nodular groundglass opacities. Partially visualized central line at the cavoatrial junction. Coronary artery calcifications noted. HEPATOBILIARY: Calcified granulomas. No focal hepatic lesions. No biliary ductal dilation. GALLBLADDER: No radio-opaque stones or sludge. No wall thickening. SPLEEN: Calcified granulomas. No splenomegaly. PANCREAS: No focal masses or ductal dilatation. ADRENALS: No adrenal nodules KIDNEYS/URETERS: No hydronephrosis. Multiple renal cysts, largest measuring 5 cm in the superior right renal pole and left 4.4 cm parapelvic cyst. No stones. GI TRACT: No abnormal distention, wall thickening, or evidence of bowel obstruction. Appendix is normal. PELVIC ORGANS/BLADDER: Prostatitic calcifications. Multiple bladder diverticula, largest measuring 4.8 cm on the superior left aspect. Small focus of air within the bladder likely secondary to instrumentation. Card catheter balloon is inflated within the penis towards the base (sagittal series 402 image 90). LYMPH NODES: No lymphadenopathy. VESSELS: There is mild atherosclerotic disease in the aorta and major arterial branches. No abdominal aortic aneurysm. PERITONEUM / RETROPERITONEUM: No free air or fluid. BONES: There are degenerative changes in the lumbar spine. SOFT TISSUES: Fat-containing bilateral inguinal hernias. Subcutaneous emphysema in the right anterior abdominal wall likely related to subcutaneous injections. IMPRESSION: 1. Card catheter balloon inflated within the penis towards the base. 2. Bilateral lower lobe patchy opacities, stable from 03/13/2018, suggestive of pneumonia. New right middle lobe nodular groundglass opacities, also likely infectious. Signed by: DR. Nikhil Linn MD on 03/17/2018 9:50 PM
--- NOTE | 2018-03-17 22:05 | NUR ---
CT RESULTS AVAILABLE, CALL PLACED FOR DR ZABALA, SPOKE WITH ALDO AT ANSWERING SERVICE
--- NOTE | 2018-03-17 22:07 | NUR ---
SPOKE WITH DR ZABALA, INSTRUCTIONS RECEIVED TO ADVANCE CATHETER INTO BLADDER, IRRIGATE AND REINFLATE THE BALLOON
--- NOTE | 2018-03-17 22:34 | NUR ---
ASSISTED KRISTEN RN TO ADVANCE ROY CATHETER. CATHETER IRRIGATED AND ASPIRATED, MULTIPLE CLOTS RETRIEVED. ROY DRAINING AT THIS TIME, PATIENT DENIES PAIN DURING REINFLATION OF BALLOON. NURSING WILL CONTINUE TO MONITOR CATHETER DRAINAGE AND TO IRRIGATE NEEDED
[2018-03-18] VITALS (16 sets, daily range): BP systolic 100–195; BP diastolic 55–108
--- NOTE | 2018-03-18 | NUR ---
Minimal bleeding present, Card irrigated with 150cc sterile water, clots expelled, urine blood tinged but clearing up. Much improvement noted, Patient reassured
[2018-03-18] MEDS: HYDROCODONE/APAP 5MG-325MG TAB PO PRN ×4 (02:00→19:45)
--- NOTE | 2018-03-18 02:00 | NUR ---
Patient had a BM, cleaned and repositioned, pain medicine administered as prescribed. Vitals stable, remains on BIPAP
[2018-03-18] MEDS: ALBUTEROL SULF 0.083% NEB SOLN 3 ML NEB NEB SCH ×6 (03:10→22:45)
[2018-03-18] MEDS: IPRATROPIUM BROMIDE 0.02% 2.5 ML NEB NEB SCH ×6 (03:10→22:45)
--- NOTE | 2018-03-18 04:00 | NUR ---
Patient calm, changed from BIPAP to high flow oxygen at 10 l/min. No complaints raised, urine dark mervat.
[2018-03-18 05:05] LABS: BASOPHILS % 0.2 % (0.0-1.0); EOSINOPHILS # (AUTO) 0.2 (0.0-0.4); EOSINOPHILS % 3.5 % (0.0-6.0); HEMATOCRIT 39.9 % (38.2-49.6); HEMOGLOBIN 12.7 g/dL (14.0-18.0); LYMPHOCYTES # (AUTO) 1.2 (1.0-3.2); LYMPHOCYTES % 25.4 % (18.0-39.1); MEAN CORPUSCULAR HEMOGLOBIN 29.5 pg (28-32); MEAN CORPUSCULAR HGB CONC 31.8 g/dL (31-35); MONOCYTES # (AUTO) 0.6 (0.2-0.8); MONOCYTES % 13.1 % (4.4-11.3); NEUTROPHILS # (AUTO) 2.6 (2.1-6.9); NEUTROPHILS % 57.4 % (38.7-80.0); PLATELET COUNT 104 x10e3/uL (140-360); RED BLOOD COUNT 4.31 x10e6/uL (4.3-5.7); RED CELL DISTRIBUTION WIDTH 12.9 % (11.7-14.4)
[2018-03-18 05:17] LABS: MEAN CORPUSCULAR VOLUME 92.6 fL (81-99)
[2018-03-18 05:22] LABS: ANION GAP 11.4 mmol/L (8-16); CALCIUM 8.2 mg/dL (8.4-10.2); CREATININE, SERUM 1.32 mg/dL (0.72-1.25); POTASSIUM 4.4 mmol/L (3.5-5.1)
[2018-03-18] MEDS: FUROSEMIDE INJ 10 MG/ML 4 ML VIAL IV SCH (05:45)
--- NOTE | 2018-03-18 06:56 | Diagnostic Imaging Report ---
EXAMINATION: CHEST SINGLE (PORTABLE) INDICATION: Pneumonia/Flu COMPARISON: Chest x-ray 03/17/2018, CT abdomen and pelvis 03/17/2018. FINDINGS: AP view TUBES and LINES: Right IJ nontunneled central line with catheter tip overlying the right atrium. LUNGS: Stable low lung volumes with perihilar fullness and indistinctness of the pulmonary vasculature. Stable patchy opacities at the lung bases. PLEURA: Small bilateral pleural effusions, stable. No evidence of pneumothorax. HEART AND MEDIASTINUM: The cardiomediastinal silhouette is unremarkable. BONES AND SOFT TISSUES: No acute osseous lesion. Soft tissues are unremarkable. UPPER ABDOMEN: No free air under the diaphragm. IMPRESSION: No significant change. Stable patchy lower lobe opacities suggestive of pneumonia. Signed by: DR. Nikhil Linn MD on 03/18/2018 6:53 AM
[2018-03-18] MEDS: CEFTRIAXONE SOD 1 GM/NS 50 ML 50 ML IV SCH ×2 (07:00→21:47)
--- NOTE | 2018-03-18 07:12 | NUR ---
patient handed over hemodynamically stable.
[2018-03-18] MEDS: FAMOTIDINE 20 MG TAB PO SCH ×2 (07:57→16:24)
--- NOTE | 2018-03-18 08:30 | NUR ---
Dr Kebede to bedside; jimenes red to pink-tinged urine output intermittently noted. Per Dr and patient, much improved from 1-3-19.
[2018-03-18] MEDS: DOXYCYCLINE HYCLATE TABLET 100 MG TAB PO SCH ×2 (09:26→16:24)
[2018-03-18] MEDS: COLCHICINE 0.6 MG TAB PO SCH ×2 (09:26→16:24)
[2018-03-18] MEDS: LIDOCAINE 5% PATCH TP SCH (09:27)
[2018-03-18] MEDS: HEPARIN SOD (PORCINE) 5,000 UNIT/ML VIAL SC SCH ×2 (09:27→21:00)
--- NOTE | 2018-03-18 10:16 | Consultation ---
DATE OF CONSULTATION: March 18, 2018 UROLOGY CONSULTATION Consultation is called by Dr. Berumen. CHIEF UROLOGIC COMPLAINT/REASON FOR CONSULTATION: Card trauma, gross hematuria. HISTORY OF PRESENT ILLNESS: Mr. Chatman is a very pleasant 77-year-old male admitted to the hospital with influenza A and respiratory distress. The patient had a Card catheter placed. He had difficulty urinating in the afternoon, and immediately began experiencing gross hematuria. Urologic consultation was delivered at approximately 7 p.m. to me. From the history, it sounded as if the catheter was malpositioned. I instructed imaging to be performed and for manipulation, which was done successfully with a return of clear urine. PAST MEDICAL HISTORY: BPH, renal cysts, renal cyst drainage. His prior urologist was Dr. Ta Henry. Obesity, hypertension and hyperlipidemia. MEDICATIONS: Please see MAR. ALLERGIES: NKDA. SOCIAL HISTORY: No smoking or drinking. FAMILY HISTORY: Denied urologic stones or malignancies. REVIEW OF SYSTEMS: Noncontributory other than problems mentioned above in the history of present illness. PHYSICAL EXAMINATION GENERAL: Elderly male in no acute distress. VITALS: Currently, he is afebrile with stable vital signs. HEENT: Sclerae anicteric. NECK: Supple. BACK: Without costovertebral angle tenderness bilaterally. ABDOMEN: Soft, nontender and nondistended. No palpable mass. No palpable hernias. : Normal external male genitalia. EXTREMITIES: No edema or cyanosis. Intact. PSYCH: Mood is appropriate. SKIN: Intact. Normal color. PERTINENT LABORATORY DATA: CT scan revealed multiple renal cysts, BPH, bladder tics, and bilateral inguinal hernias. Hemoglobin 12, hematocrit 39 and platelet count 104,000. White cell count 4520. Sodium 140, potassium 4.4, chloride 102, bicarb 31, BUN 20, creatinine 1.32, and glucose 103. IMPRESSION 1. Gross hematuria. 2. Renal cysts. 3. BPH. 4. Bladder diverticula. 5. Bilateral inguinal hernias, nonobstructing. No evidence of gangrene. 6. Leukopenia. 7. Thrombocytopenia. 8. Acute renal insufficiency. 9. Obesity. PLAN 1. Weight loss. 2. The Card catheter has been repositioned. Would recommend keeping the Card catheter for at least a week. Electively, will have a cystoscopy. For the patient's BPH, will do voiding studies as an outpatient. For the patient's renal cysts, he needs surveillance. I explained the importance of follow up with urologist. Thank you for allowing me to participate in the care of the patient. Will be happy to follow along with you. Job#: [id number] RI cc:MD DR. ADALID MAHONEY
--- NOTE | 2018-03-18 10:56 | NUR ---
Dr Lopes to bedside; patient states no present concerns or needs.
--- NOTE | 2018-03-18 12:14 | Progress Note ---
DATE: March 18, 2018 MEDICINE PROGRESS NOTE SUBJECTIVE: Patient is doing much better today with no complaints. He did have some gross hematuria in his Card. It seems that the nurse put the Card into the prostate leading to the hematuria. Urology was consulted. OBJECTIVE VITAL SIGNS: He is afebrile. Temperature 98.4, pulse 72, respiratory rate is 15, blood pressure 135/ , pulse ox 99%. He is also on a BiPAP. GENERAL: Not in acute distress. Alert and oriented x3. Cooperative on examination. HEENT: Head is normocephalic and atraumatic. Eyes: Pupils equal, round and reactive to light bilaterally. Extraocular movements intact bilaterally. NECK: Supple. Good range of motion. Throat with no evidence of any erythema or exudates in the posterior pharynx. Has poor dentition. PULMONARY: Clear to auscultation bilaterally. No wheezing. No rales. No rhonchi. No crackles appreciated. CARDIOVASCULAR: Positive S1 and S2. No murmurs, rubs or gallops appreciated. ABDOMEN: Soft, nondistended, nontender to palpation. Bowel sounds present. MUSCULOSKELETAL: Strength is 5/5 throughout. No evidence of any muscle deficit on examination. No weakness appreciated. NEUROLOGICAL: Cranial nerves II-XII are grossly intact. No evidence of any neurological deficits on exam. SKIN: Intact. Warm to touch. Good cap refill. PSYCHIATRIC: Normal affect and mood. EXTREMITIES: No edema. Good range of motion throughout. LABS: Show white count 4.5, hemoglobin 12, hematocrit is 39.9, and platelets of 104. Chemistries were all normal. MICROBIOLOGY: All cultures are negative. IMAGING STUDIES: Chest x-ray for this morning shows much improvement in pulmonary edema but still shows a patchy opacity suggestive of pneumonia. IMPRESSIONS 1. Acute hypoxic and hypercapnic respiratory failure. 2. Influenza flu positive. 3. Community-acquired pneumonia, superimposed from flu. 4. Morbid obesity. 5. Obstructive sleep apnea. 6. Obesity hypoventilation syndrome. 7. Hematuria. PLAN: At this time, urology was consulted for the hematuria. No further workup needed. He will continue with the Card as an outpatient as well according to urology. His chest x-ray looks much improved. Will hold diuretics for now. A chest x-ray was reviewed. Get a.m. labs. He will continue with IV antibiotics and Tamiflu. Pulmonary is following accordingly. All cultures have been found to be negative. Discontinue IV fluids. Continue heart-healthy diet. Patient will be transferred to [facility] once he is stable. Job#: [id number] TA
--- NOTE | 2018-03-18 15:06 | NUR ---
Dr Paredes to bedside. Okay for patient to move to IMCU.
--- NOTE | 2018-03-18 16:00 | NUR ---
Report to RODRIGO Valle for room 197.
--- NOTE | 2018-03-18 16:25 | NUR ---
Full CHG bath, linen and gown change.
--- NOTE | 2018-03-18 17:00 | NUR ---
RECEIVED PATIENT FROM ICU PATIENT TRANSFERRED IN BED HE IS ALERT AND ORIENTED X3, PLACED HIGH FLOW, TELEMETRY, SINUS RHYTHM. ROY TO GRAVITY DRAINING PINK TINGED URINE ORIENTED TO ROOM AND USE OF CALL LIGHT. BED IN LOW POSITION, BREAKS ON AT BEDSIDE WILL CONTINUE TO MONITOR.
--- NOTE | 2018-03-18 18:25 | NUR ---
PLACED CALL TO DR. BLANC MADE AWARE PATIENT HAS GROSS HEMATURIA WITH CLOTS, RECEIVED ORDERS TO FLUSH ROY 60CC NS IN AND 60CC OUT, UNTIL URINE CLEAR.
--- NOTE | 2018-03-18 19:15 | NUR ---
CALLED DR. BLANC MADE AWARE ABLE TO FLUSH BUT NOT ABLE TO PULL BACK, AND FLUSH AND CLOTS WERE EXUDING FROM PENILE AREA, RECEIVED ORDERS, TO CHANGE ROY CATHETER AND PLACE A 20 OR 22 SAMI AND ENSURE CATHETER IS IN PLACE.
--- NOTE | 2018-03-18 19:25 | NUR ---
DR. ZABALA PAGED TO INFORM HIM OF THE BRIGHT RED BLEEDING FROM BLADDER, ORDERED 20 OR 22 HEBREW CATHETER, AND IRRIGATE CATHETER UNTIL CLEAR.
--- NOTE | 2018-03-18 19:45 | NUR ---
OBTAINED CATHETERS INSERTED 20 FR W/10ML BULB, PT TOLERATED INSERTION WELL, IRRIGATED X 3, WITH CHARGE NURSE MICHAEL RN AT BEDSIDE. UNABLE TO OBTAIN ANY SALINE BACK ONCE IRRIGATED, MICHAEL ATTEMPTED TO IRRIGATE WELL, FOUND ONCE BULB WAS DEFLATED MICHAEL WAS ABLE TO OBTAIN IRRIGANT BACK, AND REMOVE STRINGY CLOTS. THIS NURSE ASSISTED UNTIL URINE WAS LIGHT PINKISH IN COLOR AND FINALLY URINE WAS LIGHT YELLOW IN COLOR AND DRAINING WELL. PT WAS ABLE TO TOLERATE IRRIGANT WELL.
[2018-03-18 21:55] LABS: HEMATOCRIT 39.3 % (38.2-49.6); HEMOGLOBIN 12.6 g/dL (14.0-18.0)
[2018-03-18] MEDS ORDERED: SODIUM CHLORIDE 0.9% 250ML 250 ML ONE (22:00)
--- NOTE | 2018-03-18 22:00 | NUR ---
URINE CONTINUES TO DRAIN CLEAR YELLOW URINE. REMAINS AT BEDSIDE
[2018-03-19] VITALS (8 sets, daily range): BP systolic 100–157; BP diastolic 66–94
[2018-03-19] MEDS: HYDROCODONE/APAP 5MG-325MG TAB PO PRN ×2 (01:16→17:44)
[2018-03-19] MEDS: ALBUTEROL SULF 0.083% NEB SOLN 3 ML NEB NEB SCH ×6 (03:17→22:40)
[2018-03-19] MEDS: IPRATROPIUM BROMIDE 0.02% 2.5 ML NEB NEB SCH ×6 (03:17→22:40)
--- NOTE | 2018-03-19 04:37 | NUR ---
CONTINUED TO CHECK ON PT'S ROY CATHETER , DRAINING DARKENED YELLOWISH LIKE URINE. PT REPOSITIONING SLIGHTLY, PT FEARFUL OF DISLODGING CATHETER. INSTRUCTED PT CATHETER IS INTACT HOWEVER WILL LET HIM KNOW WHEN IT TIME TO REPOSITION UNLESS HE WANTS TO TURN EARLIER, PT STATES OK.
[2018-03-19] MEDS: CEFTRIAXONE SOD 1 GM/NS 50 ML 50 ML IV SCH ×2 (06:38→19:39)
--- NOTE | 2018-03-19 06:39 | NUR ---
ROY CATHETER PATENT AND INTACT DRAINING YELLOW URINE WITH SEDIMENT, INFORMED PT TO DRINK PLENTY WATER, BLEEDING SUBSIDED FROM PENILE AREA. REMAINS AT BEDSIDE
[2018-03-19] MEDS: LIDOCAINE 5% PATCH TP SCH (08:18)
[2018-03-19] MEDS: COLCHICINE 0.6 MG TAB PO SCH ×2 (08:18→17:45)
[2018-03-19] MEDS: DOXYCYCLINE HYCLATE TABLET 100 MG TAB PO SCH ×2 (08:18→17:44)
[2018-03-19] MEDS: FAMOTIDINE 20 MG TAB PO SCH ×2 (08:20→17:44)
[2018-03-19] MEDS: HEPARIN SOD (PORCINE) 5,000 UNIT/ML VIAL SC SCH (08:43)
--- NOTE | 2018-03-19 13:46 | Progress Note ---
DATE: March 19, 2018 MEDICINE PROGRESS NOTE SUBJECTIVE: Patient is doing much better. He does still require BiPAP at bedtime. He does get hypoxic upon movement. VITAL SIGNS: He is afebrile. Normotensive. Respiratory rate is good. He is still on 10 liters nasal cannula and setting 99%. LAB FINDINGS: Show hemoglobin 12.6, hematocrit is 39. Chemistries are normal. MICROBIOLOGY: Blood cultures are negative. IMAGING STUDIES: Chest x-ray shows some concerns for underlying pneumonia. There was no pulmonary effusion. OBJECTIVE GENERAL: Not in acute distress. Alert and oriented x3. Cooperative on examination. HEENT: Head is normocephalic and atraumatic. Eyes: Pupils equal, round and reactive to light bilaterally. Extraocular movements intact bilaterally. NECK: Supple. Good range of motion. Throat with no evidence of any erythema or exudates in the posterior pharynx. Has poor dentition. PULMONARY: Clear to auscultation bilaterally. No wheezing. No rales. No rhonchi. No crackles appreciated. CARDIOVASCULAR: Positive S1 and S2. No murmurs, rubs or gallops appreciated. ABDOMEN: Soft, nondistended, nontender to palpation. Bowel sounds present. MUSCULOSKELETAL: Strength is 5/5 throughout. No evidence of any muscle deficit on examination. No weakness appreciated. NEUROLOGICAL: Cranial nerves II through XII are grossly intact. No evidence of any neurological deficits on exam. SKIN: Intact. Warm to touch. Good cap refill. PSYCHIATRIC: Normal affect and mood. EXTREMITIES: No edema. Good range of motion throughout. IMPRESSION 1. Acute hypoxic and hypercapnic respiratory failure. 2. Flu positive. 3. Community-acquired pneumonia, superimposed from flu. 4. Morbid obesity. 5. Obstructive sleep apnea. 6. Obesity hypoventilation syndrome. 7. Hematuria. PLAN: At this time, urology is following in term of the hematuria, which is improving daily. He is on Tamiflu and IV antibiotics. Chest x-ray was reviewed and stable. His labs were reviewed and stable. Pulmonary is following accordingly. will be available tomorrow. Job#: [id number] NOE
--- NOTE | 2018-03-19 15:11 | NUR ---
nurse deferring tx 2/2 pt had a bad night, f/u 03-21-18 Addendum: 03/19/18 at 1512 by [address] PTA Amended: Links added.
[2018-03-20] VITALS (9 sets, daily range): BP systolic 104–155; BP diastolic 54–124
[2018-03-20] MEDS: IPRATROPIUM BROMIDE 0.02% 2.5 ML NEB NEB SCH ×6 (03:20→23:05)
[2018-03-20] MEDS: ALBUTEROL SULF 0.083% NEB SOLN 3 ML NEB NEB SCH ×6 (03:20→23:05)
[2018-03-20] MEDS: ONDANSETRON HCL INJ 2 MG/ML VIAL IV PRN (07:51)
[2018-03-20] MEDS: HYDROCODONE/APAP 5MG-325MG TAB PO PRN ×2 (07:51→17:06)
[2018-03-20] MEDS: FAMOTIDINE 20 MG TAB PO SCH ×2 (07:51→16:39)
[2018-03-20] MEDS: CEFTRIAXONE SOD 1 GM/NS 50 ML 50 ML IV SCH (07:51)
[2018-03-20] MEDS: DOXYCYCLINE HYCLATE TABLET 100 MG TAB PO SCH ×2 (08:12→17:42)
[2018-03-20] MEDS: COLCHICINE 0.6 MG TAB PO SCH ×2 (08:12→17:43)
[2018-03-20] MEDS: LIDOCAINE 5% PATCH TP SCH (08:12)
--- NOTE | 2018-03-20 14:18 | NUR ---
per dr. lee, leave catheter in when patient d/c's and follow up in the clinic around Mar 25 (1 week since cisneros was first inserted)
[2018-03-20] MEDS: LEVOFLOXACIN 500 MG TAB PO SCH (16:46)
[2018-03-20] MEDS: SENNOSIDES 8.6 MG TAB PO SCH (17:42)
[2018-03-20] MEDS: BENZONATATE 100 MG CAP PO PRN (17:43)
[2018-03-21] VITALS (8 sets, daily range): BP systolic 109–163; BP diastolic 65–92
[2018-03-21] MEDS: IPRATROPIUM BROMIDE 0.02% 2.5 ML NEB NEB SCH ×6 (03:25→23:15)
[2018-03-21] MEDS: ALBUTEROL SULF 0.083% NEB SOLN 3 ML NEB NEB SCH ×6 (03:25→23:15)
[2018-03-21 05:11] LABS: BASOPHILS % 0.3 % (0.0-1.0); EOSINOPHILS # (AUTO) 0.1 (0.0-0.4); EOSINOPHILS % 3.2 % (0.0-6.0); HEMATOCRIT 34.3 % (38.2-49.6); HEMOGLOBIN 10.8 g/dL (14.0-18.0); LYMPHOCYTES # (AUTO) 0.6 (1.0-3.2); LYMPHOCYTES % 15.9 % (18.0-39.1); MEAN CORPUSCULAR HEMOGLOBIN 29.2 pg (28-32); MEAN CORPUSCULAR HGB CONC 31.5 g/dL (31-35); MEAN CORPUSCULAR VOLUME 92.7 fL (81-99); MONOCYTES # (AUTO) 0.5 (0.2-0.8); MONOCYTES % 13.5 % (4.4-11.3); NEUTROPHILS # (AUTO) 2.5 (2.1-6.9); PLATELET COUNT 116 x10e3/uL (140-360); RED CELL DISTRIBUTION WIDTH 12.8 % (11.7-14.4)
[2018-03-21 05:27] LABS: ANION GAP 10.9 mmol/L (8-16); BLOOD UREA NITROGEN 10 mg/dL (7-26); BUN/CREATININE RATIO 11 (6-25); CARBON DIOXIDE 34 mmol/L (22-29); CHLORIDE 100 mmol/L (98-107); EST GLOMERULAR FILTRATION RATE > 60 ML/MIN (60-); GLUCOSE 87 mg/dL (74-118); POTASSIUM 3.9 mmol/L (3.5-5.1); SODIUM 141 mmol/L (136-145)
[2018-03-21] MEDS: HYDROCODONE/APAP 5MG-325MG TAB PO PRN (05:40)
--- NOTE | 2018-03-21 06:40 | NUR ---
PT SLEPT WELL DURING THE NIGHT. AT BEDSIDE, ROY INTACT AND DRAINS CLEAR URINE. WILL REPORT OFF TO ONCOMING NURSE REPORTING OFF TO YELENA WALLACE ROY CARE AND CHANGE WILL BE DONE BY THE . PT IS TO F/U WITH IN ONE WEEK
[2018-03-21] MEDS: FAMOTIDINE 20 MG TAB PO SCH ×2 (08:00→16:15)
[2018-03-21] MEDS: SENNOSIDES 8.6 MG TAB PO SCH ×2 (09:30→16:53)
[2018-03-21] MEDS: COLCHICINE 0.6 MG TAB PO SCH ×2 (09:30→16:15)
[2018-03-21] MEDS: LIDOCAINE 5% PATCH TP SCH (09:30)
--- NOTE | 2018-03-21 09:30 | NUR ---
Patient received sitting up in bed, AAOx3, present who assists. Assessment complete, vss, in no apparent distress. Pt has good bed mobility, PT to eval and treat today. Patient encouraged to get oob for meals. Discussed plan for the day.
--- NOTE | 2018-03-21 10:42 | NUR ---
URINARY LEG BAG EDUCATION WITH PATIENT AND . TEACH-BACK METHOD USED. SUPPLIES GIVEN
--- NOTE | 2018-03-21 11:25 | NUR ---
Per infectious disease RN, pt to remain on isolation for flu. She will communicate with
--- NOTE | 2018-03-21 13:00 | NUR ---
EMPTYING LEG BAG CATHETER WITH CLEAN TECHNIQUE
[2018-03-21] MEDS: BENZONATATE 100 MG CAP PO PRN (16:15)
[2018-03-21] MEDS: LEVOFLOXACIN 500 MG TAB PO SCH (16:15)
--- NOTE | 2018-03-21 17:22 | NUR ---
Nutrition Screen Note RD Recommendation for Physician: - Continue cardiac diet as ordered Plan of Care: RD following, monitoring for tolerance and adequacy Nutrition reason for involvement: Follow up Primary Diagnose(s): 1. Acute hypoxic and hypercapnic respiratory failure. 2. Flu positive. 3. Community-acquired pneumonia, superimposed from flu. PMH: Obesity, hypertension, hyperlipidemia. Ht: 74in Wt: 371.06lb 03/14, 366lb 03/20 BMI: 47.6kg/m2 IBW: 190lb RD Assessment: (03/21) Chart reviewed. Pt was discussed during rounds. Visited pt in the room. Pt reports good appetite with 100% meal intake per . No GI complains noted. LBM 03/21. Pt denies any chewing or swallowing difficulty. Will continue to monitor and follow. (03/14) Chart reviewed. Labs and meds reviewed. 77yo M, who is admitted for weakness and SOB. Visited pt in the room. Pt reports eating well without any weight loss [employer]. No GI complains noted. LBM 03/13. Pt denies any chewing or swallowing difficulty. Pt is eager to resume diet. Will continue to monitor and follow. Current Diet: cardiac diet Malnutrition Evaluation (03/14/18) The patient does not meet criteria for a specified degree of malnutrition at this time. Will re-evaluate at follow-up as appropriate. Diet Education Needs Assessment: Diet education not indicated. Nutrition Care Level: low Signed: Aimee Rodrigues, MS, RD, LD
--- NOTE | 2018-03-21 19:30 | NUR ---
RECEIVED REPORT FROM 7AM NURSE, ROUNDS DONE. PATIENT RESTING IN THE BBB, ON THE CPAP, AT THE BEDSIDE. WILL CONTINUE TO MONITOR. CALL LIGHT IN REACH.
[2018-03-22] VITALS (7 sets, daily range): BP systolic 123–165; BP diastolic 70–92
--- NOTE | 2018-03-22 00:24 | NUR ---
PATIENT CONTINUE RESTING, NO DISTRESS NOTED. RESTING ON THE SOFA. WILL CONTINUE TO MONITOR. CALL LIGHT REMAIN IN REACH.
[2018-03-22] MEDS: ALBUTEROL SULF 0.083% NEB SOLN 3 ML NEB NEB SCH ×6 (02:50→22:40)
[2018-03-22] MEDS: IPRATROPIUM BROMIDE 0.02% 2.5 ML NEB NEB SCH ×6 (02:50→22:40)
[2018-03-22 05:08] LABS: BASOPHILS % 0.5 % (0.0-1.0); EOSINOPHILS # (AUTO) 0.1 (0.0-0.4); EOSINOPHILS % 2.2 % (0.0-6.0); HEMATOCRIT 36.3 % (38.2-49.6); HEMOGLOBIN 11.7 g/dL (14.0-18.0); LYMPHOCYTES # (AUTO) 0.7 (1.0-3.2); LYMPHOCYTES % 17.1 % (18.0-39.1); MEAN CORPUSCULAR HEMOGLOBIN 29.7 pg (28-32); MEAN CORPUSCULAR HGB CONC 32.2 g/dL (31-35); MEAN CORPUSCULAR VOLUME 92.1 fL (81-99); MONOCYTES # (AUTO) 0.6 (0.2-0.8); MONOCYTES % 15.1 % (4.4-11.3); NEUTROPHILS # (AUTO) 2.7 (2.1-6.9); NEUTROPHILS % 64.1 % (38.7-80.0); PLATELET COUNT 140 x10e3/uL (140-360); RED BLOOD COUNT 3.94 x10e6/uL (4.3-5.7); RED CELL DISTRIBUTION WIDTH 12.6 % (11.7-14.4)
[2018-03-22 05:32] LABS: INR 0.97; PROTHROMBIN TIME 13.8 seconds (11.9-14.5)
[2018-03-22 05:33] LABS: PARTIAL THROMBOPLASTIN TIME 32.1 seconds (23.8-35.5)
[2018-03-22 05:41] LABS: ALANINE AMINOTRANSFERASE 305 IU/L (0-55); ALBUMIN 2.4 g/dL (3.5-5.0); ALBUMIN/GLOBULIN RATIO 0.8 (0.8-2.0); ALKALINE PHOSPHATASE 70 IU/L (40-150); BLOOD UREA NITROGEN 9 mg/dL (7-26); BUN/CREATININE RATIO 10 (6-25); CALCIUM 8.4 mg/dL (8.4-10.2); CARBON DIOXIDE 35 mmol/L (22-29); CHLORIDE 98 mmol/L (98-107); CREATININE, SERUM 0.94 mg/dL (0.72-1.25); EST GLOMERULAR FILTRATION RATE > 60 ML/MIN (60-); GLUCOSE 86 mg/dL (74-118); SODIUM 142 mmol/L (136-145)
--- NOTE | 2018-03-22 07:13 | NUR ---
REPORT GIVEN TO AM NURSE.
--- NOTE | 2018-03-22 07:37 | NUR ---
LEFT FLOOR FOR SMALL BOWEL SERIES Addendum: 03/22/18 at 1131 by Esau Card RN error, wrong patient
[2018-03-22] MEDS: LIDOCAINE 5% PATCH TP SCH (08:45)
[2018-03-22] MEDS: FAMOTIDINE 20 MG TAB PO SCH ×2 (08:45→17:00)
[2018-03-22] MEDS: COLCHICINE 0.6 MG TAB PO SCH ×2 (08:45→17:00)
--- NOTE | 2018-03-22 08:45 | NUR ---
Patient received lying in bed, asleep, easily awakened, A/Ox3, present. Assessment complete, vss, in no apparent distress. Persistent wheezing noted, encouraged to increase use of Incentive Spirometer. Pt has good bed mobility, continues with PT. Discussed plan for the day.
[2018-03-22] MEDS: SENNOSIDES 8.6 MG TAB PO SCH ×2 (09:00→16:22)
--- NOTE | 2018-03-22 09:15 | NUR ---
PT ASSISTED OOB TO RESTROOM USING WALKER, TOLERATED WELL. ENCOURAGED TO USE INCENTIVE SPIROMETER, GET OOB AND AMBULATE MORE, VERBALIZED UNDERSTANDING. AGREED
[2018-03-22] MEDS ORDERED: FUROSEMIDE INJ 10 MG/ML 2 ML VIAL IV NR (10:30)
--- NOTE | 2018-03-22 13:00 | NUR ---
PT CLEANED UP AND ASSISTED TO BEDSIDE CHAIR, TOLERATING WELL. USING INCENTIVE SPIROMETER
--- NOTE | 2018-03-22 14:06 | NUR ---
PT IS DISCHARGING HOME PER CHOICE NO SNF NEEDED.
[2018-03-22] MEDS: LEVOFLOXACIN 500 MG TAB PO SCH (14:40)
--- NOTE | 2018-03-22 15:28 | NUR ---
WOUND CARE CONSULTATION: INITIAL EVALUATION Israel Foster is a 77 year-old male admitted through he ER from Home with Respiratory Failure, Hypoxia. Presents with + Cough and on Dropplet Precautions. WC consulted for concerns of sacral redness and possible stage 1 pressure ulcer. He is on a cardiac healthy diet. Patient able to turn self during head to toe assessment. He is on a 48" Big Turn 2 CHINEDU air mattress which is appropriate for his size and weight. Redness noted to mid-gluteal fold with overmoisture and defined line to pink healthy skin. Patient sates to be having episodes of diarrhea and currently using barrier creams after each bowel movement. Education provided to ensure to dry area off well after washing and before putting on barrier creams to reduce overmoisture. He verbalized understanding. Bilateral heels are intact. Since patient is able to move well and seems to be more of a moisture management issue. No foam dressings should be used for pressure relieving. LABS: WBC4.16 RBC3.94 HGB11.7 HCT36.3 MICRO: No BC Noted Throat CX - Normal Sierra. RECOMMENDATION: 1. Continue Using BIG TURN 2 CHINEDU AIR MATTRESS. 2. Assist patient to TURN and Reposition every 2 Hours 3. Continue Using Skin Barrier Cream/ Ointment after each Bowel Movement PRN 4. Continue Not Using Foam Dressings ( Helps Dissipate / Prevent Overmoisture ) Thank you for the consultation. Addendum: 03/22/18 at 1546 by Carols Meredith RN Amended: Links added.
--- NOTE | 2018-03-22 16:02 | NUR ---
ASSISTED TO RESTROOM THEN TO ROOM COUCH, TOLERATED WELL. USING INCENTIVE SPIROMETER
[2018-03-22] MEDS ORDERED: CHOLESTYRAMINE 4 GM PACKET PO PRN (17:00)
--- NOTE | 2018-03-22 17:00 | NUR ---
PT NOTED WITH MULTIPLE SOFT TO LOOSE BMS NOTIFIED. NEW ORDERS NOTED. SAMPLE SENT TO LAB FOR CDIFF.
--- NOTE | 2018-03-22 19:06 | NUR ---
PATIENT RESTING IN BED, ROUNDS DONE WITH AM NURSE. REMAIN ON ISOLATION, 02 PER NC REMAIN INTACT AT 4L. REMAIN ON TELEMETRY. CALL LIGHT IN REACH. AT THE BEDSIDE. WILL CONTINUE TO MONITOR.
[2018-03-23] VITALS (10 sets, daily range): BP systolic 99–153; BP diastolic 67–89
[2018-03-23] MEDS: IPRATROPIUM BROMIDE 0.02% 2.5 ML NEB NEB SCH ×6 (01:45→23:00)
[2018-03-23] MEDS: ALBUTEROL SULF 0.083% NEB SOLN 3 ML NEB NEB SCH ×6 (01:45→23:00)
--- NOTE | 2018-03-23 04:57 | NUR ---
INSTRUCTED PATIENT TO USE HIS INCENTIVE SPIROMETRY AND DO SOME COFFEE AND DEEP BREATHING EXERCISES.
[2018-03-23 05:17] LABS: BASOPHILS % 0.2 % (0.0-1.0); EOSINOPHILS # (AUTO) 0.1 (0.0-0.4); EOSINOPHILS % 2.1 % (0.0-6.0); HEMATOCRIT 35.3 % (38.2-49.6); HEMOGLOBIN 11.4 g/dL (14.0-18.0); LYMPHOCYTES # (AUTO) 0.8 (1.0-3.2); MEAN CORPUSCULAR HEMOGLOBIN 29.3 pg (28-32); MEAN CORPUSCULAR HGB CONC 32.3 g/dL (31-35); MEAN CORPUSCULAR VOLUME 90.7 fL (81-99); MONOCYTES # (AUTO) 0.7 (0.2-0.8); MONOCYTES % 15.2 % (4.4-11.3); NEUTROPHILS # (AUTO) 2.7 (2.1-6.9); NEUTROPHILS % 63.3 % (38.7-80.0); PLATELET COUNT 155 x10e3/uL (140-360); RED BLOOD COUNT 3.89 x10e6/uL (4.3-5.7); RED CELL DISTRIBUTION WIDTH 12.6 % (11.7-14.4)
[2018-03-23 05:38] LABS: ANION GAP 10.4 mmol/L (8-16); BLOOD UREA NITROGEN 7 mg/dL (7-26); BUN/CREATININE RATIO 7 (6-25); CALCIUM 8.5 mg/dL (8.4-10.2); CARBON DIOXIDE 38 mmol/L (22-29); CHLORIDE 95 mmol/L (98-107); CREATININE, SERUM 0.94 mg/dL (0.72-1.25); EST GLOMERULAR FILTRATION RATE > 60 ML/MIN (60-); GLUCOSE 94 mg/dL (74-118); POTASSIUM 3.4 mmol/L (3.5-5.1); SODIUM 140 mmol/L (136-145)
--- NOTE | 2018-03-23 06:55 | NUR ---
report given to am nurse, rounds done. call light remain in reach. family at the bedside. will continue to monitor.
[2018-03-23] MEDS ORDERED: POTASSIUM CHLORIDE 10MEQ EA PO NR (08:45)
[2018-03-23] MEDS: FAMOTIDINE 20 MG TAB PO SCH ×2 (09:48→16:34)
[2018-03-23] MEDS: LIDOCAINE 5% PATCH TP SCH (09:48)
[2018-03-23] MEDS: SENNOSIDES 8.6 MG TAB PO SCH (09:48)
[2018-03-23] MEDS: COLCHICINE 0.6 MG TAB PO SCH ×2 (09:48→16:34)
[2018-03-23] MEDS ORDERED: POTASSIUM CHLORIDE 20 MEQ TAB CR PO NR (10:30)
[2018-03-23] MEDS ORDERED: FUROSEMIDE INJ 10 MG/ML 2 ML VIAL IV NR (10:30)
--- NOTE | 2018-03-23 11:39 | NUR ---
Spoke with jannie Jones to transfer patient to Med Surg with Bipap for hours of sleep.
--- NOTE | 2018-03-23 13:35 | NUR ---
CASE MANAGEMENT INITIAL ASSESSMENT Strand Galvanizer to bedside to discuss plan of care with patient/family. CM/SW role and care transitions discussed. Anticipated discharge plan discussed along with duration of care. CM/SW discussed patients right to make decisions in care. CM/SW work hours given. Patient lives: Admit/Transfer: ER POA/Emergency contact: SHANIAT MANSFIELD [phone] Current/Previous Home Health: ORDERS REC'D FOR HOME HEALTH CARE; CHOICE LETTER SIGNED FOR [facility], COPY TO PT CALLED AND FAXED ORDERS TO [facility] [phone] FAX: [phone]; CONFIRMATION REC'D PCP/Follow-up Care: DR ADALID Whatley Current/Previous DME: NONE Other Services: NONE Employment Status: WORKS Areas of Concerns: RETURNING TO WORK Referral Needs: [facility]IATR[facility]ALKER AND HOME 02 ARRANGED THRU [facility] [phone] FAX [phone]; SPOKE WITH LUIS AT [facility] AND ASKED THAT BOTH BE DELIVERED TO PT'S ROOM; PLAN DISCHARGE HOME 03/24 Education Needs: NONE IMM/ULRICH given and signed (if applicable): IMM SIGNED AND ON CHART; COPY TO PT 03/23 Goal for discharge:DISCHARGE HOME 03/24 WITH 02 AND RETURN TO WORK CESAR CM/SW left business card at the bedside with contact information. Name and number was also written on the patients whiteboard. Patient verbalized understanding of discussion. CM will follow-up with ongoing discharge and transition of care needs.
--- NOTE | 2018-03-23 14:52 | NUR ---
Verified with Dr Berumen that patient does need telemetry to go to Med Surg.
[2018-03-23] MEDS: LEVOFLOXACIN 500 MG TAB PO SCH (15:12)
--- NOTE | 2018-03-23 19:05 | NUR ---
RECEIVED REPORT AT BEDSIDE BY YONIS RN, PT SITTING UP ON COUCH IN WITH O2 ON AT 4LITER N/C. AT PT'S BEDSIDE.
--- NOTE | 2018-03-23 19:14 | NUR ---
Report given at bedside to RODRIGO Carmen. Addendum: 03/23/18 at 1915 by Dianne Blair RN Report given to RODRIGO Garzon.
--- NOTE | 2018-03-23 19:14 | NUR ---
Report given at bedside to RODRIGO Garzon.
[2018-03-23] MEDS: BENZONATATE 100 MG CAP PO PRN (21:35)
--- NOTE | 2018-03-23 22:00 | NUR ---
pt sitting up on the couch by with o2 on at 4l per n/c. informed him he couldn't be off the monitor for very long, pt verbalized understanding.
[2018-03-24 00:15] VITALS: BP 139/71
[2018-03-24] MEDS: BENZONATATE 100 MG CAP PO PRN ×2 (01:23→12:10)
[2018-03-24] MEDS: IPRATROPIUM BROMIDE 0.02% 2.5 ML NEB NEB SCH ×3 (02:30→11:00)
[2018-03-24] MEDS: ALBUTEROL SULF 0.083% NEB SOLN 3 ML NEB NEB SCH ×3 (02:30→11:00)
[2018-03-24 04:15] VITALS: BP 131/66
--- NOTE | 2018-03-24 04:15 | NUR ---
laboratory helper here , labs drawn from central line and sent to lab
[2018-03-24 05:15] LABS: BASOPHILS % 0.2 % (0.0-1.0); EOSINOPHILS # (AUTO) 0.1 (0.0-0.4); EOSINOPHILS % 1.3 % (0.0-6.0); HEMATOCRIT 36.7 % (38.2-49.6); LYMPHOCYTES # (AUTO) 0.8 (1.0-3.2); LYMPHOCYTES % 17.9 % (18.0-39.1); MEAN CORPUSCULAR HEMOGLOBIN 29.9 pg (28-32); MEAN CORPUSCULAR HGB CONC 32.7 g/dL (31-35); MEAN CORPUSCULAR VOLUME 91.3 fL (81-99); MONOCYTES # (AUTO) 0.8 (0.2-0.8); NEUTROPHILS # (AUTO) 2.8 (2.1-6.9); NEUTROPHILS % 62.9 % (38.7-80.0); PLATELET COUNT 146 x10e3/uL (140-360); RED BLOOD COUNT 4.02 x10e6/uL (4.3-5.7); RED CELL DISTRIBUTION WIDTH 12.7 % (11.7-14.4)
[2018-03-24 05:31] LABS: ANION GAP 12.6 mmol/L (8-16); BLOOD UREA NITROGEN 6 mg/dL (7-26); BUN/CREATININE RATIO 6 (6-25); CALCIUM 8.5 mg/dL (8.4-10.2); CARBON DIOXIDE 36 mmol/L (22-29); CHLORIDE 94 mmol/L (98-107); CREATININE, SERUM 1.03 mg/dL (0.72-1.25); EST GLOMERULAR FILTRATION RATE > 60 ML/MIN (60-); GLUCOSE 110 mg/dL (74-118); POTASSIUM 3.6 mmol/L (3.5-5.1); SODIUM 139 mmol/L (136-145)
--- NOTE | 2018-03-24 06:48 | NUR ---
NO CHANGE IN PT'S STATUS, DENIES PAIN AND DISCOMFORTS WILL REPORT OFF TO ONCOMING SHIFT NURSE.
[2018-03-24 07:30] VITALS: BP 99/67
[2018-03-24 08:00] VITALS: BP 99/67
[2018-03-24] MEDS: FAMOTIDINE 20 MG TAB PO SCH ×2 (08:26→16:49)
[2018-03-24] MEDS: COLCHICINE 0.6 MG TAB PO SCH ×2 (08:26→16:49)
[2018-03-24] MEDS: LIDOCAINE 5% PATCH TP SCH (08:26)
--- NOTE | 2018-03-24 08:32 | NUR ---
PATIENT ASSISTED OUT OF THE BED TO THE TOILET AND HE'S NOW SITTING UP ON THE BEDSIDE CHAIR. 02@6L/NC, OXYGEN SATURATION 91%, PATIENT DENIES RESPIRATORY DISTRESS AT THIS TIME BUT HE C/O HEADACHE. CALL AND SPOKE WITH DR JIMENEZ REGARDING THE PATIENT'S HEADACHE, ORDER RECEIVED FOR TYLENOL. WILL ADMINISTER THE MEDICATION ONCE IT HAS BEEN VERIFIED BY THE PHARMACIST.
[2018-03-24] MEDS: ACETAMINOPHEN 325 MG TAB PO PRN ×2 (08:40→16:50)
[2018-03-24 12:12] VITALS: BP 147/74
--- NOTE | 2018-03-24 12:30 | NUR ---
PATIENT CONDITION STABLE, MEDICATED WITH TESSALON BARBARA ORDERED FOR COUGH. PATIENT HAS DISCHARGE ORDER, AWAITING HOME OXYGEN DELIVERY BEFORE THE PATIENT CAN BE DISCHARGE TO HOME. CASE MANAGEMENT IS MADE AWARE THAT THE PATIENT HAS DISCHARGE ORDER TO HOME.
--- NOTE | 2018-03-24 14:16 | Discharge Summary ---
PRIMARY CARE PHYSICIAN: Dr. Concha Otoole. CONSULTANTS 1. Dr. Vianey Raman. 2. Dr. Ricardo Flores. 3. Dr. Graham Landeros. FINAL DIAGNOSES 1. Status post respiratory failure, intubation, extubation with acute hypoxia secondary to acute influenza. 2. Bibasilar pneumonia secondary to influenza. 3. Urinary retention with urinary tract infection with a Card catheter in place. 4. Morbid obesity. 5. Electrolyte disorder, corrected. 6. Pancytopenia, resolving. 7. Oxygen dependent, oxygen arrangement has been made. SUMMARY: Patient is a very pleasant male with acute hypoxia with toxic encephalopathy. The patient with bibasilar pneumonia. The patient was with respiratory failure. The patient also had bilateral basilar pneumonia as well. He had influenza positive. The patient was with respiratory support on ventilator in the ICU and subsequently weaning and extubated. His mental status much improved. He did require restraint because of his confusion from his infection and hypoxia with sepsis as well. The patient was stable. He is doing much better now. He is ambulatory. Oxygen has been arranged. The patient will need nasal cannula. Patient was also with urinary retention while he was hospitalized. Card catheter placed. He will need urodynamic study as an outpatient. He will go home with a Card catheter. The patient does have obstructive sleep apnea as well. He is using a CPAP while he sleep. Overall, he is doing much better, almost back to baseline. He is ambulatory. Oxygen has been arranged and a large rolling walker is arranged. Home health with [facility] also been arranged as well. The patient is stable at this time. He will go home with the following instructions. He needs to follow up with Dr. Vianey Raman or Dr. Rickie Paredes as an outpatient along with Dr. Graham Landeros, his urologist. He will take the following medications on going home. Levaquin 5 mg daily for 5 days, Tylenol No. 3 one q.6 p.r.n. for pain, Zofran ODT 4 mg sublingual q.4 p.r.n. for nausea and vomiting, ProAir HFA 2 puffs q.4 hours as needed for shortness breath, Tessalon Perles 1 mg q.4 hours as needed for cough. Patient is stable, discharged home. Follow up with Dr. Otoole, his PCP, next week. The patient is stable, discharged after lunch today. Job#: [id number] PRUDENCIO
--- NOTE | 2018-03-24 14:32 | NUR ---
PATIENT IS AMBULATING IN THE HUNTER WITH ROLLING WALKER AND PORTABLE OXYGEN WITH FACIAL MASK DUE TO RESPIRATORY ISOLATION, HIS AND STAFF MEMBER IS WALKING WITH HIM.
--- NOTE | 2018-03-24 14:55 | NUR ---
Per Linda with [facility], they are not accepting [employer]. CM called [facility] [employer] and [facility] and was informed they both take [employer]. Spoke with pt and his at bedside. Pt stated he didn't have preference for either company as long as they take his insurance. Choice letter signed for both. Signed copy placed in chart. Copy to pt's . Referral faxed to [facility] at [phone]. Informed Valeriy Bobo with [facility] [phone] of referral and that pt has discharge order for today.
[2018-03-24] MEDS: LEVOFLOXACIN 500 MG TAB PO SCH (15:37)
--- NOTE | 2018-03-24 16:26 | NUR ---
GAVE PT YAMILET JOHN GOT GREEN SHEET SIGNED AND PUT ON CHART FOR MD SIGNATURE.
[2018-03-24 17:00] VITALS: BP 149/77
--- NOTE | 2018-03-24 17:49 | NUR ---
PORTABLE OXYGEN TANKS HAS BEEN DELIVER, WILL REMOVED CENTRAL LINE AND DISCHARGE THE PATIENT TO HOME AFTER HE COMPLETES HIS DINNER.
[2018-03-24] MEDS ORDERED: LEVAQUIN500 MG PO (18:29)
[2018-03-24] MEDS ORDERED: TYLENOL WITH C1 EACH PO (18:30)
[2018-03-24] MEDS ORDERED: ZOFRAN4 MG SL (18:32)
[2018-03-24] MEDS ORDERED: PROAIR HFA INH8.5 GM INH (18:34)
[2018-03-24] MEDS ORDERED: TESSALON PERLE100 MG PO (18:35)
--- NOTE | 2018-03-24 19:20 | NUR ---
CENTRAL VENOUS CATHETER REMOVED WITH TIP INTACT, DISCHARGED INSTRUCTIONS, PRESCRIPTION AND F/U GIVEN TO THE PATIENT AND HIS . ROY CATHETER REMAINS INTACT, PATIENT IS NOW USING THE TOILET, HE WILL BE DISCHARGE TO HOME UPON COMPLETION. CHANGE OF SHIFT REPORT GIVEN TO THE ONCOMING NURSE TO CONTINUE WITH THE DISCHARGE.
--- NOTE | 2018-03-24 19:40 | NUR ---
PT LEFT IN STABLE CONDITION, DENIES ANY PAIN UPON D/C, VITAL SIGNS STABLE.
--- NOTE | 2018-03-24 19:40 | NUR ---
PT LEFT THE BUILDING AT 1940, WITH ALL BELONGINGS AND OXYGEN ON AT 2 LITERS.
--- NOTE | 2018-03-24 21:36 | NUR ---
ARRANGED FOR BED PROPERTY CLAIMS ADJUSTER WITH SIZE [employer]. SPOKE TO GISELE @ 2136PM. CONFIRMATION NUMBER [id number]. ALSO SPOKE TO ROXANA @ 2145PM THE MAILING CLERK FOR SIZE WIGGINS. HE STATED WILL BE OUT TO PICK BED UP BED TOMORROW AFTERNOON ON 03/25/18.
== END 2018-03-24 19:45 | disposition home health service (06) | DRG 193 ==
LOC: ER 06:15 → ERHOLD 11:00 → ICU 12:03 → IMCU 03-18 16:43 → MED/SURG2 03-22 20:48 → IMCU 03-22 21:15
PROVIDERS: ADMIT Internal Medicine; ATTEND Internal Medicine
PROC: 02HV33Z Insertion of Infusion Device into Superior Vena Cava, Percutaneous Approach (ICD-10-PCS; principal; 2018-03-15)
DX: J11.00 Influenza due to unidentified influenza virus with unspecified type of pneumonia (principal); J96.21 Acute and chronic respiratory failure with hypoxia; J96.02 Acute respiratory failure with hypercapnia; N39.0 Urinary tract infection, site not specified; D61.818 Other pancytopenia; Z68.42 Body mass index [BMI] 45.0-49.9, adult; N17.9 Acute kidney failure, unspecified; E66.2 Morbid (severe) obesity with alveolar hypoventilation; R33.9 Retention of urine, unspecified; Z99.81 Dependence on supplemental oxygen; E87.8 Other disorders of electrolyte and fluid balance, not elsewhere classified; N32.3 Diverticulum of bladder; D72.819 Decreased white blood cell count, unspecified; N40.1 Benign prostatic hyperplasia with lower urinary tract symptoms; R33.8 Other retention of urine; N28.1 Cyst of kidney, acquired; R31.0 Gross hematuria
CPT/HCPCS: 36415; 36556; 36600; 71045; 71260; 74176; 74470; 76937; 80048; 80053; 80061; 82550; 82553; 82805; 83518; 83605; 83880; 84484; 85014; 85018; 85025; 85379; 85610; 85730; 87040; 87070; 87400; 87449; 87493; 93005; 93306; 93970; 94640; 94660; 96365; 96374; 96375; 97139; 99285; C1751; C1769; J0456; J0696; J1644; J1940; J2270; J2405; J2930; J7030; J7050; Q9967

== ENCOUNTER → 2018-04-30 | Outpatient (CLI) | payer MEDICARE ==
[~2018-04-30] MED LIST changes: +COLCRYS0.6 MG PO; +LEVAQUIN500 MG PO; +PROAIR HFA INH8.5 GM INH; +TESSALON PERLE100 MG PO; +TYLENOL WITH C1 EACH PO; +ZOFRAN4 MG SL
== END ==
LOC: SLEEP 19:51
PROVIDERS: ATTEND Internal Medicine Pulmonary Disease
DX: G47.33 Obstructive sleep apnea (adult) (pediatric) (principal)
CPT/HCPCS: 95810

== ENCOUNTER 2020-10-14 19:07 | Emergency (ER) | payer MEDICARE ==
[~2020-10-14] VITALS: Ht 188 cm; Wt 164.7 kg
[~2020-10-14 19:07] MED LIST changes: +OMEPRAZOLE40 MG PO; +WARFARIN SODIUM5 MG PO
[2020-10-14 19:33] LABS: BASOPHILS % 0.6 % (0.0-1.0); EOSINOPHILS # (AUTO) 0.2 (0.0-0.4); EOSINOPHILS % 2.2 % (0.0-6.0); HEMATOCRIT 45.7 % (38.2-49.6); HEMOGLOBIN 14.7 g/dL (14.0-18.0); LYMPHOCYTES # (AUTO) 1.7 (1.0-3.2); LYMPHOCYTES % 23.7 % (18.0-39.1); MEAN CORPUSCULAR HEMOGLOBIN 29.6 pg (28-32); MEAN CORPUSCULAR HGB CONC 32.2 g/dL (31-35); MEAN CORPUSCULAR VOLUME 92.1 fL (81-99); MONOCYTES # (AUTO) 0.7 (0.2-0.8); MONOCYTES % 9.4 % (4.4-11.3); NEUTROPHILS # (AUTO) 4.6 (2.1-6.9); NEUTROPHILS % 63.5 % (38.7-80.0); PLATELET COUNT 152 x10e3/uL (140-360); RED BLOOD COUNT 4.96 x10e6/uL (4.3-5.7)
[2020-10-14 20:03] LABS: ALBUMIN 3.4 g/dL (3.5-5.0); ALBUMIN/GLOBULIN RATIO 1.1 (0.8-2.0); ANION GAP 14.5 mmol/L (8-16); CALCIUM 8.7 mg/dL (8.4-10.2); CREATININE, SERUM 1.23 mg/dL (0.72-1.25); POTASSIUM 4.5 mmol/L (3.5-5.1)
[2020-10-14] MEDS ORDERED: ONDANSETRON HCL INJ 2MG/ML 2ML 2 MG/ML VIAL IV STA (20:06)
[2020-10-14 22:46] VITALS: BP 129/69
== END 2020-10-14 23:00 | disposition home or self-care (01) ==
LOC: ER 19:26
DX: R07.89 Other chest pain (principal); R10.13 Epigastric pain; I10 Essential (primary) hypertension; R94.31 Abnormal electrocardiogram [ECG] [EKG]
CPT/HCPCS: 36415; 71045; 76705; 80053; 83690; 84484; 85025; 93005; 99284; J2405

== ENCOUNTER 2021-03-15 12:08 | Inpatient (IN) | payer MEDICARE ==
[~2021-03-15] VITALS: Ht 188 cm; Wt 164.7 kg
[2021-03-15 13:02] LABS: BASOPHILS % 0.4 % (0.0-1.0); EOSINOPHILS % 0.7 % (0.0-6.0); HEMATOCRIT 42.9 % (38.2-49.6); HEMOGLOBIN 13.6 g/dL (14.0-18.0); LYMPHOCYTES # (AUTO) 0.9 (1.0-3.2); LYMPHOCYTES % 16.3 % (18.0-39.1); MEAN CORPUSCULAR HEMOGLOBIN 29.9 pg (28-32); MEAN CORPUSCULAR HGB CONC 31.7 g/dL (31-35); MEAN CORPUSCULAR VOLUME 94.3 fL (81-99); MONOCYTES # (AUTO) 0.9 (0.2-0.8); NEUTROPHILS # (AUTO) 3.8 (2.1-6.9); NEUTROPHILS % 65.7 % (38.7-80.0); PLATELET COUNT 121 x10e3/uL (140-360); RED BLOOD COUNT 4.55 x10e6/uL (4.3-5.7); RED CELL DISTRIBUTION WIDTH 13.2 % (11.7-14.4)
[2021-03-15] MEDS ORDERED: ONDANSETRON HCL INJ 2MG/ML 2ML 2 MG/ML VIAL IV STA (13:04)
[2021-03-15 13:20] LABS: ALBUMIN 3.3 g/dL (3.5-5.0); ALBUMIN/GLOBULIN RATIO 1.1 (0.8-2.0); CALCIUM 8.4 mg/dL (8.4-10.2); CREATININE, SERUM 1.3 mg/dL (0.72-1.25)
[2021-03-15] MEDS ORDERED: SODIUM CHLORIDE 0.9% 1000ML 1,000 ML IV STA (13:54)
[2021-03-15] MEDS ORDERED: CEFTRIAXONE 1 GM in SODIUM CHLORIDE 0.9% 50ML 50 ML IV ONE (14:00)
[2021-03-15] MEDS ORDERED: DEXAMETHASONE SOD PHOS 10 MG/1 ML VIAL IV ONE (14:00)
[2021-03-15 15:15] VITALS: BP 111/85
[2021-03-15 15:26] VITALS: BP 111/85
[2021-03-15] MEDS: SODIUM CHLORIDE 0.9% 1000ML 1,000 ML IV SCH ×2 (16:44→23:08)
[2021-03-15 20:15] VITALS: BP 126/89
[2021-03-15 20:35] VITALS: BP 126/89
[2021-03-15] MEDS ORDERED: ACETAMINOPHEN 325 MG TAB PO PRN (23:45)
[2021-03-16] VITALS (7 sets, daily range): BP systolic 94–161; BP diastolic 51–98
[2021-03-16] MEDS ORDERED: ONDANSETRON HCL INJ 2MG/ML 2ML 2 MG/ML VIAL IV PRN
[2021-03-16] MEDS ORDERED: BENZONATATE 100 MG CAP PO PRN ×2 (00:15)
[2021-03-16] MEDS ORDERED: ALBUTEROL SULFATE HFA 8GM INHALATION AEROSOL INH PRN (00:15)
[2021-03-16] MEDS ORDERED: HYDRALAZINE HCL 20 MG/ML VIAL IV PRN (00:15)
[2021-03-16 06:43] LABS: BASOPHILS % 0.2 % (0.0-1.0); HEMATOCRIT 42.5 % (38.2-49.6); HEMOGLOBIN 13.3 g/dL (14.0-18.0); LYMPHOCYTES # (AUTO) 1.1 (1.0-3.2); LYMPHOCYTES % 16.4 % (18.0-39.1); MEAN CORPUSCULAR HEMOGLOBIN 29.4 pg (28-32); MEAN CORPUSCULAR HGB CONC 31.3 g/dL (31-35); MONOCYTES # (AUTO) 0.9 (0.2-0.8); MONOCYTES % 14.2 % (4.4-11.3); NEUTROPHILS # (AUTO) 4.4 (2.1-6.9); NEUTROPHILS % 68.7 % (38.7-80.0); RED BLOOD COUNT 4.52 x10e6/uL (4.3-5.7); RED CELL DISTRIBUTION WIDTH 13.1 % (11.7-14.4)
[2021-03-16] MEDS: IPRATROPIUM BROMIDE INHALER 12.9 GM INH INH SCH ×3 (07:00→19:34)
[2021-03-16] MEDS: ALBUTEROL SULFATE HFA 8GM INHALATION AEROSOL INH SCH ×3 (07:00→19:00)
[2021-03-16 07:19] LABS: PLATELET COUNT 117 x10e3/uL (140-360)
[2021-03-16 07:29] LABS: ANION GAP 13.1 mmol/L (8-16); CALCIUM 8.2 mg/dL (8.4-10.2); CREATININE, SERUM 1.31 mg/dL (0.72-1.25); POTASSIUM 5.1 mmol/L (3.5-5.1)
[2021-03-16] MEDS: CHOLECALCIFEROL 1,000 UNIT TAB PO SCH (08:43)
[2021-03-16] MEDS: BENZONATATE 100 MG CAP PO SCH ×3 (08:43→20:27)
[2021-03-16] MEDS: CEFTRIAXONE 1 GM in SODIUM CHLORIDE 0.9% 50ML 50 ML IV SCH (08:43)
[2021-03-16] MEDS: COLCHICINE 0.6 MG TAB PO SCH ×2 (08:43→09:00)
[2021-03-16] MEDS: DEXAMETHASONE SOD PHOS 10 MG/1 ML VIAL IV SCH (08:43)
[2021-03-16] MEDS: PANTOPRAZOLE SOD 40 MG TABEC PO SCH (08:43)
[2021-03-16] MEDS: ASCORBIC ACID 500 MG TAB PO SCH ×2 (08:43→17:04)
[2021-03-16] MEDS ORDERED: ALLOPURINOL100 MG PO (09:49)
[2021-03-16] MEDS: ALLOPURINOL 100 MG TAB PO SCH (10:17)
[2021-03-16 11:15] LABS: INR 1.01; PROTHROMBIN TIME 14.1 seconds (11.9-14.5)
[2021-03-16] MEDS ORDERED: WARFARIN SOD 5 MG TAB PO SCH (17:00)
[2021-03-17] VITALS: BP 125/59
[2021-03-17] MEDS: IPRATROPIUM BROMIDE INHALER 12.9 GM INH INH SCH ×5 (01:11→23:16)
[2021-03-17] MEDS: ALBUTEROL SULFATE HFA 8GM INHALATION AEROSOL INH SCH ×4 (01:11→20:00)
[2021-03-17 04:00] VITALS: BP 147/85
[2021-03-17 06:19] LABS: HEMATOCRIT 45.1 % (38.2-49.6); LYMPHOCYTES # (AUTO) 1.2 (1.0-3.2); LYMPHOCYTES % 13.8 % (18.0-39.1); MEAN CORPUSCULAR HEMOGLOBIN 29.4 pg (28-32); MEAN CORPUSCULAR VOLUME 94.7 fL (81-99); MONOCYTES # (AUTO) 0.9 (0.2-0.8); MONOCYTES % 10.5 % (4.4-11.3); NEUTROPHILS # (AUTO) 6.6 (2.1-6.9); NEUTROPHILS % 75.2 % (38.7-80.0); PLATELET COUNT 137 x10e3/uL (140-360); RED BLOOD COUNT 4.76 x10e6/uL (4.3-5.7); RED CELL DISTRIBUTION WIDTH 12.8 % (11.7-14.4)
[2021-03-17 06:49] LABS: INR 1.05; PROTHROMBIN TIME 14.5 seconds (11.9-14.5)
[2021-03-17 07:05] LABS: ANION GAP 14.6 mmol/L (8-16); CALCIUM 8.1 mg/dL (8.4-10.2); CREATININE, SERUM 1.31 mg/dL (0.72-1.25); POTASSIUM 4.6 mmol/L (3.5-5.1)
[2021-03-17 08:11] VITALS: BP 128/75
[2021-03-17] MEDS ORDERED: ONDANSETRON HCL 4 MG ORAL DISINTEGRATING TAB PO PRN (08:15)
[2021-03-17 08:27] VITALS: BP 128/75
[2021-03-17] MEDS: DEXAMETHASONE SOD PHOS 10 MG/1 ML VIAL IV SCH (08:54)
[2021-03-17] MEDS: ALLOPURINOL 100 MG TAB PO SCH (08:54)
[2021-03-17] MEDS: CEFTRIAXONE 1 GM in SODIUM CHLORIDE 0.9% 50ML 50 ML IV SCH (08:54)
[2021-03-17] MEDS: CHOLECALCIFEROL 1,000 UNIT TAB PO SCH (08:54)
[2021-03-17] MEDS: BENZONATATE 100 MG CAP PO SCH ×3 (08:54→22:33)
[2021-03-17] MEDS: ASCORBIC ACID 500 MG TAB PO SCH ×2 (08:54→16:57)
[2021-03-17] MEDS: PANTOPRAZOLE SOD 40 MG TABEC PO SCH (08:54)
[2021-03-17] MEDS ORDERED: WARFARIN SOD 5 MG TAB PO ONE (10:00)
[2021-03-17] MEDS: ENOXAPARIN SODIUM INJ 100 MG/ML SYR SC SCH ×2 (10:12→22:33)
[2021-03-17 12:01] VITALS: BP 129/55
[2021-03-17] MEDS ORDERED: REMDESIVIR 100MG 200 MG in SODIUM CHLORIDE 0.9% 100 ML IV ONE (13:00)
[2021-03-17 20:00] VITALS: BP_SYST 129; BP_SYST 133; BP_DIAS 55; BP_DIAS 66
[2021-03-18] VITALS (8 sets, daily range): BP systolic 112–177; BP diastolic 62–88
[2021-03-18 05:29] LABS: INR 1.37
[2021-03-18] MEDS: IPRATROPIUM BROMIDE INHALER 12.9 GM INH INH SCH ×4 (07:05→19:40)
[2021-03-18] MEDS: ALBUTEROL SULFATE HFA 8GM INHALATION AEROSOL INH SCH ×3 (07:05→19:40)
[2021-03-18] MEDS: PANTOPRAZOLE SOD 40 MG TABEC PO SCH (07:28)
[2021-03-18] MEDS: ASCORBIC ACID 500 MG TAB PO SCH ×2 (08:56→17:03)
[2021-03-18] MEDS: ENOXAPARIN SODIUM INJ 100 MG/ML SYR SC SCH ×2 (08:56→21:18)
[2021-03-18] MEDS: CHOLECALCIFEROL 1,000 UNIT TAB PO SCH (08:56)
[2021-03-18] MEDS: CEFTRIAXONE 1 GM in SODIUM CHLORIDE 0.9% 50ML 50 ML IV SCH (08:56)
[2021-03-18] MEDS: DEXAMETHASONE SOD PHOS 10 MG/1 ML VIAL IV SCH (08:56)
[2021-03-18] MEDS: ALLOPURINOL 100 MG TAB PO SCH (08:56)
[2021-03-18] MEDS: BENZONATATE 100 MG CAP PO SCH ×3 (08:56→21:18)
[2021-03-18] MEDS ORDERED: WARFARIN SOD 5 MG TAB PO ONE (10:30)
[2021-03-18] MEDS: REMDESIVIR 100MG 100 MG in SODIUM CHLORIDE 0.9% 100 ML IV SCH (14:34)
[2021-03-19] VITALS (7 sets, daily range): BP systolic 100–165; BP diastolic 56–108
[2021-03-19] MEDS: ALBUTEROL SULFATE HFA 8GM INHALATION AEROSOL INH SCH ×4 (01:15→20:16)
[2021-03-19] MEDS: IPRATROPIUM BROMIDE INHALER 12.9 GM INH INH SCH ×5 (01:15→23:45)
[2021-03-19 07:56] LABS: BASOPHILS % 0.2 % (0.0-1.0); HEMOGLOBIN 13.7 g/dL (14.0-18.0); LYMPHOCYTES # (AUTO) 1.4 (1.0-3.2); LYMPHOCYTES % 29.7 % (18.0-39.1); MEAN CORPUSCULAR HEMOGLOBIN 29.1 pg (28-32); MEAN CORPUSCULAR HGB CONC 31.1 g/dL (31-35); MEAN CORPUSCULAR VOLUME 93.6 fL (81-99); MONOCYTES # (AUTO) 0.8 (0.2-0.8); MONOCYTES % 17.1 % (4.4-11.3); NEUTROPHILS # (AUTO) 2.4 (2.1-6.9); NEUTROPHILS % 52.6 % (38.7-80.0); PLATELET COUNT 120 x10e3/uL (140-360)
[2021-03-19 08:09] LABS: INR 1.73; PROTHROMBIN TIME 21.6 seconds (11.9-14.5)
[2021-03-19 08:19] LABS: ALBUMIN 3.2 g/dL (3.5-5.0); ALBUMIN/GLOBULIN RATIO 0.9 (0.8-2.0); ANION GAP 11.6 mmol/L (8-16); CALCIUM 8.8 mg/dL (8.4-10.2); CREATININE, SERUM 1.23 mg/dL (0.72-1.25); POTASSIUM 4.6 mmol/L (3.5-5.1)
[2021-03-19] MEDS: DEXAMETHASONE SOD PHOS 10 MG/1 ML VIAL IV SCH (09:37)
[2021-03-19] MEDS: CEFTRIAXONE 1 GM in SODIUM CHLORIDE 0.9% 50ML 50 ML IV SCH (09:37)
[2021-03-19] MEDS: PANTOPRAZOLE SOD 40 MG TABEC PO SCH (09:37)
[2021-03-19] MEDS: CHOLECALCIFEROL 1,000 UNIT TAB PO SCH (09:38)
[2021-03-19] MEDS: ALLOPURINOL 100 MG TAB PO SCH (09:38)
[2021-03-19] MEDS: ASCORBIC ACID 500 MG TAB PO SCH ×2 (09:38→15:17)
[2021-03-19] MEDS: BENZONATATE 100 MG CAP PO SCH ×3 (09:38→21:22)
[2021-03-19] MEDS: AZITHROMYCIN 250 MG TAB PO SCH (09:38)
[2021-03-19] MEDS: ENOXAPARIN SODIUM INJ 100 MG/ML SYR SC SCH ×2 (09:38→21:20)
[2021-03-19] MEDS: REMDESIVIR 100MG 100 MG in SODIUM CHLORIDE 0.9% 100 ML IV SCH (15:17)
[2021-03-20] VITALS (9 sets, daily range): BP systolic 134–158; BP diastolic 51–91
[2021-03-20] MEDS: ALBUTEROL SULFATE HFA 8GM INHALATION AEROSOL INH SCH ×5 (01:00→19:30)
[2021-03-20] MEDS: IPRATROPIUM BROMIDE INHALER 12.9 GM INH INH SCH ×4 (07:00→19:30)
[2021-03-20 09:24] LABS: INR 1.8; PROTHROMBIN TIME 22.3 seconds (11.9-14.5)
[2021-03-20] MEDS: PANTOPRAZOLE SOD 40 MG TABEC PO SCH (09:26)
[2021-03-20] MEDS: ALLOPURINOL 100 MG TAB PO SCH (09:27)
[2021-03-20] MEDS: CHOLECALCIFEROL 1,000 UNIT TAB PO SCH (09:27)
[2021-03-20] MEDS: CEFTRIAXONE 1 GM in SODIUM CHLORIDE 0.9% 50ML 50 ML IV SCH (09:27)
[2021-03-20] MEDS: BENZONATATE 100 MG CAP PO SCH ×3 (09:27→21:22)
[2021-03-20] MEDS: AZITHROMYCIN 250 MG TAB PO SCH (09:27)
[2021-03-20] MEDS: ASCORBIC ACID 500 MG TAB PO SCH ×2 (09:27→16:35)
[2021-03-20] MEDS: DEXAMETHASONE SOD PHOS 10 MG/1 ML VIAL IV SCH (09:27)
[2021-03-20] MEDS: ENOXAPARIN SODIUM INJ 100 MG/ML SYR SC SCH ×2 (09:30→21:22)
[2021-03-20] MEDS ORDERED: WARFARIN SOD 5 MG TAB PO ONE ×2 (10:00→17:00)
[2021-03-20] MEDS: REMDESIVIR 100MG 100 MG in SODIUM CHLORIDE 0.9% 100 ML IV SCH (14:15)
[2021-03-20] MEDS ORDERED: CHOLESTYRAMINE 4 GM PACKET PO PRN (14:30)
[2021-03-21 00:06] VITALS: BP 136/91
[2021-03-21] MEDS: ALBUTEROL SULFATE HFA 8GM INHALATION AEROSOL INH SCH (00:42)
[2021-03-21] MEDS: IPRATROPIUM BROMIDE INHALER 12.9 GM INH INH SCH (00:42)
[2021-03-21 05:21] VITALS: BP 144/78
[2021-03-21 05:46] LABS: INR 2.35; PROTHROMBIN TIME 27.6 seconds (11.9-14.5)
[2021-03-21 08:02] VITALS: BP 138/64
[2021-03-21 08:11] VITALS: BP 138/64
[2021-03-21] MEDS: PANTOPRAZOLE SOD 40 MG TABEC PO SCH (08:20)
[2021-03-21] MEDS ORDERED: DEXAMETHASONE 4 MG TAB PO SCH (09:00)
[2021-03-21] MEDS: ASCORBIC ACID 500 MG TAB PO SCH (09:47)
[2021-03-21] MEDS: BENZONATATE 100 MG CAP PO SCH (09:47)
[2021-03-21] MEDS: CHOLECALCIFEROL 1,000 UNIT TAB PO SCH (09:47)
[2021-03-21] MEDS: ENOXAPARIN SODIUM INJ 100 MG/ML SYR SC SCH (09:47)
[2021-03-21] MEDS: ALLOPURINOL 100 MG TAB PO SCH (09:47)
[2021-03-21] MEDS: REMDESIVIR 100MG 100 MG in SODIUM CHLORIDE 0.9% 100 ML IV SCH (10:46)
[2021-03-21 10:59] VITALS: BP 115/80
== END 2021-03-21 13:15 | disposition home or self-care (01) | DRG 177 ==
LOC: ER 12:10 → ERHOLD 13:59 → MED/SURG3 14:56
PROVIDERS: ADMIT Internal Medicine; ATTEND Internal Medicine
PROC: 3E0333Z Introduction of Anti-inflammatory into Peripheral Vein, Percutaneous Approach (ICD-10-PCS; principal; 2021-03-15)
PROC: XW033E5 Introduction of Remdesivir Anti-infective into Peripheral Vein, Percutaneous Approach, New Technology Group 5 (ICD-10-PCS; 2021-03-17)
DX: U07.1 COVID-19 (principal); J12.82 Pneumonia due to coronavirus disease 2019; N17.9 Acute kidney failure, unspecified; Z68.42 Body mass index [BMI] 45.0-49.9, adult; E66.2 Morbid (severe) obesity with alveolar hypoventilation; I48.91 Unspecified atrial fibrillation; Z79.01 Long term (current) use of anticoagulants; M17.0 Bilateral primary osteoarthritis of knee; I12.9 Hypertensive chronic kidney disease with stage 1 through stage 4 chronic kidney disease, or unspecified chronic kidney disease; N18.2 Chronic kidney disease, stage 2 (mild); Z82.49 Family history of ischemic heart disease and other diseases of the circulatory system; R06.89 Other abnormalities of breathing; R09.02 Hypoxemia
CPT/HCPCS: 36415; 71045; 80048; 80053; 83605; 83880; 84484; 85025; 85610; 87040; 87493; 93005; 94664; 94799; 96360; 97139; 99285; J0360; J0456; J0696; J1100; J1650; J2405; J7030; J7050; U0002

== ENCOUNTER 2023-02-01 15:46 | Inpatient (IN) | payer MEDICARE ==
[~2023-02-01] VITALS: Ht 182.9 cm; Wt 164.7 kg
[~2023-02-01 15:46] MED LIST changes: +ALLOPURINOL100 MG PO; +B12 ACTIVE1000 MCG PO; +CELEXA20 MG PO; +FLOMAX0.4 MG PO
[2023-02-01] MEDS ORDERED: ACETAMINOPHEN 325 MG TAB PO STA (15:57)
[2023-02-01 16:29] LABS: BASOPHILS % 0.3 % (0.0-1.0); EOSINOPHILS % 0.2 % (0.0-6.0); HEMATOCRIT 19.5 % (38.2-49.6); LYMPHOCYTES # (AUTO) 5.4 (1.0-3.2); LYMPHOCYTES % 60.1 % (18.0-39.1); MEAN CORPUSCULAR HGB CONC 29.7 g/dL (31-35); MEAN CORPUSCULAR VOLUME 107.7 fL (81-99); MONOCYTES # (AUTO) 1.6 (0.2-0.8); MONOCYTES % 18.3 % (4.4-11.3); NEUTROPHILS # (AUTO) 1.6 (2.1-6.9); NEUTROPHILS % 18.2 % (38.7-80.0); RED BLOOD COUNT 1.81 x10e6/uL (4.3-5.7); RED CELL DISTRIBUTION WIDTH 15.9 % (11.7-14.4); WHITE BLOOD COUNT 8.97 x10e3/uL (4.8-10.8)
[2023-02-01 16:37] LABS: HEMOGLOBIN 5.8 g/dL (14.0-18.0); PLATELET COUNT 21 x10e3/uL (140-360)
[2023-02-01 16:44] LABS: ALBUMIN 2.4 g/dL (3.5-5.0); ALBUMIN/GLOBULIN RATIO 0.6 (0.8-2.0); ANION GAP 18.5 mmol/L (8-16); BILIRUBIN,TOTAL 2.5 mg/dL (0.2-1.2); CALCIUM 8.3 mg/dL (8.4-10.2); CREATININE, SERUM 2.65 mg/dL (0.72-1.25); TOTAL PROTEIN 6.1 g/dL (6.5-8.1)
[2023-02-01] MEDS ORDERED: SODIUM CHLORIDE 0.9% 250ML 250 ML IV ONE (16:45)
[2023-02-01 16:55] LABS: TROPONIN I 0.857 ng/mL (0-0.300)
[2023-02-01 16:56] LABS: POTASSIUM 5.5 mmol/L (3.5-5.1)
[2023-02-01] MEDS ORDERED: SODIUM BICARBONATE 8.4% INJ 50 ML SYR IV STA (17:42)
[2023-02-01] MEDS ORDERED: CALCIUM GLUCONATE 10% INJ 0.465 MEQ/ML VIAL IV STA (17:42)
[2023-02-01] MEDS ORDERED: ALBUTEROL SULF 0.083% NEB SOLN 3 ML NEB NEB STA (17:42)
[2023-02-01] MEDS ORDERED: Morphine 4mg INJECTION 4 MG/ML INJ IV PRN (17:45)
[2023-02-01] MEDS ORDERED: ONDANSETRON HCL INJ 2MG/ML 2ML 2 MG/ML VIAL IV PRN (17:45)
[2023-02-01] MEDS ORDERED: SODIUM CHLORIDE FLUSH 10 ML SYR INJ PRN (17:45)
[2023-02-01] MEDS ORDERED: INSULIN REGULAR, HUMAN 100 UNIT/1 ML IV ONE (17:45)
[2023-02-01] MEDS ORDERED: DEXTROSE 50% SYRINGE 50 ML IV ONE (17:45)
[2023-02-01] MEDS ORDERED: FUROSEMIDE INJ 10 MG/ML 4 ML VIAL IV ONE (17:45)
[2023-02-01] MEDS ORDERED: CALCIUM GLUC 1 G/50 ML NACL 50 ML IV ONE (18:00)
[2023-02-01 18:16] VITALS: PULSE 89; RESP 22; O2SAT 98
[2023-02-01 18:51] LABS: ANISOCYTOSIS MODERATE; HYPOCHROMASIA SLIGHT; LYMPHOCYTES % (MANUAL) 63 % (19-48); MONOCYTES % (MANUAL) 10 % (3.4-9.0); NEUTROPHILS % (MANUAL) 23 % (40-74); PLATELET ESTIMATE MARKEDLY DECREASED; PLATELET MORPHOLOGY COMMENT NORMAL; RBC MORPHOLOGY COMMENT ABNORMAL; REACTIVE LYMPHOCYTES 4
[2023-02-01] MEDS ORDERED: KLOR-CON 1010 MEQ PO (19:45)
[2023-02-01] MEDS ORDERED: FUROSEMIDE40 MG PO (19:45)
[2023-02-01] MEDS ORDERED: FINASTERIDE5 MG PO (19:45)
[2023-02-01] MEDS ORDERED: ONDANSETRON HCL8 MG PO (19:45)
[2023-02-01 19:55] VITALS: BP 144/61; PULSE 89; RESP 20; TEMP 98.9; O2SAT 97
[2023-02-01] MEDS ORDERED: FUROSEMIDE INJ 10 MG/ML 2 ML VIAL IV SCH (20:30)
[2023-02-01] MEDS ORDERED: ACETAMINOPHEN 325 MG TAB PO ONE (20:45)
[2023-02-01] MEDS ORDERED: SODIUM CHLORIDE 0.9% 250ML 250 ML ONE ×2 (21:19→22:06)
[2023-02-01 23:40] VITALS: BP 117/60; PULSE 78; RESP 20; TEMP 97.8; O2SAT 100
[2023-02-02] VITALS (11 sets, daily range): BP systolic 97–130; BP diastolic 50–60; PULSE 76–96; RESP 18–22; TEMP 97.8–98.9; O2SAT 95–100
[2023-02-02 02:33] LABS: TROPONIN I 0.871 ng/mL (0-0.300)
[2023-02-02] MEDS ORDERED: FUROSEMIDE INJ 10 MG/ML 2 ML VIAL IV SCH ×2 (03:15→16:45)
[2023-02-02 06:19] LABS: BASOPHILS % 0.4 % (0.0-1.0); EOSINOPHILS % 0.2 % (0.0-6.0); LYMPHOCYTES # (AUTO) 5.5 (1.0-3.2); LYMPHOCYTES % 67.8 % (18.0-39.1); MEAN CORPUSCULAR HEMOGLOBIN 33.5 pg (28-32); MEAN CORPUSCULAR HGB CONC 31.2 g/dL (31-35); MEAN CORPUSCULAR VOLUME 107.4 fL (81-99); MONOCYTES # (AUTO) 0.6 (0.2-0.8); MONOCYTES % 7.8 % (4.4-11.3); NEUTROPHILS # (AUTO) 1.7 (2.1-6.9); NEUTROPHILS % 20.4 % (38.7-80.0); RED BLOOD COUNT 1.88 x10e6/uL (4.3-5.7); RED CELL DISTRIBUTION WIDTH 15.9 % (11.7-14.4); WHITE BLOOD COUNT 8.17 x10e3/uL (4.8-10.8)
[2023-02-02 06:42] LABS: HEMATOCRIT 20.2 % (38.2-49.6); HEMOGLOBIN 6.3 g/dL (14.0-18.0); PLATELET COUNT 11 x10e3/uL (140-360)
[2023-02-02 06:51] LABS: ALBUMIN 2.3 g/dL (3.5-5.0); ALBUMIN/GLOBULIN RATIO 0.6 (0.8-2.0); ANION GAP 18.1 mmol/L (8-16); BILIRUBIN,TOTAL 2.9 mg/dL (0.2-1.2); CALCIUM 8.4 mg/dL (8.4-10.2); CREATININE, SERUM 2.94 mg/dL (0.72-1.25); POTASSIUM 5.1 mmol/L (3.5-5.1)
[2023-02-02 07:16] LABS: TROPONIN I 1.043 ng/mL (0-0.300)
[2023-02-02 07:17] LABS: BILIRUBIN,URINE NEGATIVE (NEGATIVE); CLARITY,URINE CLOUDY (CLEAR); COLOR,URINE YELLOW (YELLOW); GLUCOSE, URINE NEGATIVE (NEGATIVE); KETONES,URINE NEGATIVE (NEGATIVE); LEUKOCYTE ESTERASE ,URINE MODERATE (NEGATIVE); NITRITE,URINE NEGATIVE (NEGATIVE); PH,URINE 5 (5 - 7); PROTEIN,URINE DIPSTICK TRACE (NEGATIVE)
[2023-02-02 07:53] LABS: EPITHELIAL CELLS,URINE RARE /LPF
[2023-02-02 07:54] LABS: BACTERIA,URINE MODERATE /HPF; RBC,URINE 0-5 /HPF (0-5); WBC,URINE (MAN) >50 /HPF (0-5)
[2023-02-02 07:55] LABS: YEAST,URINE MODERATE
[2023-02-02 09:31] LABS: BAND NEUTROPHILS % (MANUAL) 1 %; BASOPHILS % (MANUAL) 1 % (0-1.5); LYMPHOCYTES % (MANUAL) 65 % (19-48); METAMYELOCYTES % (MANUAL) 1 % (0-0); MONOCYTES % (MANUAL) 1 % (3.4-9.0); MYELOCYTES % (MANUAL) 1 % (0-0); NEUTROPHILS % (MANUAL) 28 % (40-74); REACTIVE LYMPHOCYTES 2
[2023-02-02] MEDS ORDERED: SODIUM CHLORIDE 0.9% 250ML 250 ML ONE (09:31)
[2023-02-02 09:33] LABS: ANISOCYTOSIS MODERATE; HYPOCHROMASIA SLIGHT; PLATELET ESTIMATE MARKEDLY DECREASED; PLATELET MORPHOLOGY COMMENT NORMAL; POLYCHROMASIA FEW; RBC MORPHOLOGY COMMENT ABNORMAL
[2023-02-02] MEDS ORDERED: ALBUTEROL/IPRATROPIUM 3 ML NEB NEB PRN (10:30)
[2023-02-02] MEDS ORDERED: FLUCONAZOLE 100 MG TAB PO ONE (11:00)
[2023-02-02] MEDS: ALBUTEROL/IPRATROPIUM 3 ML NEB NEB SCH ×2 (13:07→19:32)
[2023-02-02] MEDS: FUROSEMIDE INJ 10 MG/ML 4 ML VIAL IV SCH (13:13)
[2023-02-02] MEDS ORDERED: MELATONIN 3 MG TAB PO PRN (14:45)
[2023-02-02] MEDS ORDERED: HYDRALAZINE HCL 20 MG/ML VIAL IV PRN (14:45)
[2023-02-02] MEDS ORDERED: GUAIFENESIN/DEXTROMETHORPHAN LIQD 5 ML UDC PO PRN (14:45)
[2023-02-02] MEDS: DOCUSATE SODIUM 100 MG CAP PO SCH (17:00)
[2023-02-02 19:30] LABS: TROPONIN I 0.897 ng/mL (0-0.300)
[2023-02-02] MEDS: BUDESONIDE 0.25 MG/2 ML NEB NEB SCH (19:33)
[2023-02-02 23:57] LABS: % IRON SATURATION 15 % (15-50); IRON 28 ug/dL (65-175); TOTAL IRON BINDING CAPACITY 182 ug/dL (261-478); TRANSFERRIN 130 mg/dL (174-364)
[2023-02-03] VITALS (11 sets, daily range): BP systolic 113–155; BP diastolic 39–80; PULSE 72–91; RESP 18–22; TEMP 97.2–99.7; O2SAT 99–100
[2023-02-03] MEDS: ALBUTEROL/IPRATROPIUM 3 ML NEB NEB SCH ×4 (01:49→19:26)
[2023-02-03] MEDS: ACETAMINOPHEN 325 MG TAB PO PRN ×2 (03:13→14:19)
[2023-02-03 06:24] LABS: ALBUMIN 2.1 g/dL (3.5-5.0); ALBUMIN/GLOBULIN RATIO 0.6 (0.8-2.0); ANION GAP 15.9 mmol/L (8-16); BILIRUBIN,TOTAL 2.5 mg/dL (0.2-1.2); CALCIUM 8.1 mg/dL (8.4-10.2); CREATININE, SERUM 3.27 mg/dL (0.72-1.25); MAGNESIUM 1.8 MG/DL (1.3-2.1); PHOSPHORUS 4.2 MG/DL (2.3-4.7); POTASSIUM 4.9 mmol/L (3.5-5.1); TOTAL PROTEIN 5.5 g/dL (6.5-8.1)
[2023-02-03 06:28] LABS: BASOPHILS % 0.3 % (0.0-1.0); EOSINOPHILS % 0.3 % (0.0-6.0); LYMPHOCYTES # (AUTO) 4.7 (1.0-3.2); MEAN CORPUSCULAR HEMOGLOBIN 32.2 pg (28-32); MEAN CORPUSCULAR HGB CONC 30.1 g/dL (31-35); MEAN CORPUSCULAR VOLUME 107.2 fL (81-99); MONOCYTES # (AUTO) 0.9 (0.2-0.8); MONOCYTES % 12.9 % (4.4-11.3); NEUTROPHILS # (AUTO) 1.5 (2.1-6.9); NEUTROPHILS % 20.2 % (38.7-80.0); RED CELL DISTRIBUTION WIDTH 16.9 % (11.7-14.4)
[2023-02-03 06:35] LABS: INR 1.11; PROTHROMBIN TIME 14.5 seconds (11.9-14.5)
[2023-02-03 06:47] LABS: HEMATOCRIT 19.3 % (38.2-49.6); HEMOGLOBIN 5.8 g/dL (14.0-18.0); PLATELET COUNT 12 x10e3/uL (140-360)
[2023-02-03 06:49] LABS: THYROID STIMULATING HORMONE 1.172 uIU/mL (0.350-4.940)
[2023-02-03] MEDS: BUDESONIDE 0.25 MG/2 ML NEB NEB SCH ×2 (07:43→19:26)
[2023-02-03] MEDS ORDERED: SODIUM CHLORIDE 0.9% 250ML 250 ML IV ONE (07:45)
[2023-02-03] MEDS: DOCUSATE SODIUM 100 MG CAP PO SCH ×2 (09:00→17:00)
[2023-02-03] MEDS: TAMSULOSIN HCL 0.4 MG CAP PO SCH (09:21)
[2023-02-03] MEDS: FUROSEMIDE INJ 10 MG/ML 4 ML VIAL IV SCH (09:21)
[2023-02-03] MEDS: PANTOPRAZOLE SOD 40 MG TABEC PO SCH (09:21)
[2023-02-03] MEDS: FLUCONAZOLE 100 MG TAB PO SCH (09:21)
[2023-02-03] MEDS: CITALOPRAM HYDROBROMIDE 20 MG TAB PO SCH (09:21)
[2023-02-03] MEDS: ALLOPURINOL 100 MG TAB PO SCH (09:22)
[2023-02-03] MEDS: FINASTERIDE 5 MG TAB PO SCH (09:22)
[2023-02-03] MEDS: BALSAM PERU/CASTOR OIL 60 GM OINT...G. TP SCH (09:33)
[2023-02-03] MEDS: IRON SUCROSE 100 MG in SODIUM CHLORIDE 0.9% 100 ML IV SCH (09:33)
[2023-02-03 09:38] LABS: BAND NEUTROPHILS % (MANUAL) 1 %; BASOPHILS % (MANUAL) 1 % (0-1.5); BLAST CELLS % MANUAL 5; LYMPHOCYTES % (MANUAL) 47 % (19-48); MONOCYTES % (MANUAL) 16 % (3.4-9.0); NEUTROPHILS % (MANUAL) 19 % (40-74); NUCLEATED RED BLOOD CELLS 4; PLATELET ESTIMATE MARKEDLY DECREASED; PLATELET MORPHOLOGY COMMENT NORMAL; RBC MORPHOLOGY COMMENT NORMAL; REACTIVE LYMPHOCYTES 11
[2023-02-03] MEDS ORDERED: SODIUM CHLORIDE 0.9% 250ML 250 ML ONE (11:22)
[2023-02-03] MEDS ORDERED: ONDANSETRON HCL 4 MG ORAL DISINTEGRATING TAB PO PRN (11:30)
[2023-02-03] MEDS: FUROSEMIDE INJ 10 MG/ML 2 ML VIAL IV PRN ×2 (15:28→20:47)
[2023-02-03] MEDS ORDERED: SODIUM CHLORIDE 0.9% 1000ML 1,000 ML IV SCH (19:30)
[2023-02-03 20:21] LABS: CREATININE,URINE RANDOM 59.87 mg/dL (63-166); TOTAL PROTEIN, URINE 22.1 mg/dL (1-14)
[2023-02-03 20:44] LABS: SODIUM,URINE 77 mmol/L
[2023-02-03] MEDS ORDERED: SODIUM CHLORIDE 0.9% 250ML 500 ML ONE (22:22)
[2023-02-04] VITALS (9 sets, daily range): BP systolic 110–131; BP diastolic 45–95; PULSE 54–85; RESP 18–21; TEMP 97.4–98.2; O2SAT 93–100
[2023-02-04] MEDS: ALBUTEROL/IPRATROPIUM 3 ML NEB NEB SCH ×4 (01:09→19:20)
[2023-02-04 06:48] LABS: BASOPHILS % 0.3 % (0.0-1.0); EOSINOPHILS % 0.2 % (0.0-6.0); HEMATOCRIT 21.5 % (38.2-49.6); LYMPHOCYTES # (AUTO) 3.9 (1.0-3.2); LYMPHOCYTES % 64.4 % (18.0-39.1); MEAN CORPUSCULAR HEMOGLOBIN 32.2 pg (28-32); MEAN CORPUSCULAR HGB CONC 30.7 g/dL (31-35); MEAN CORPUSCULAR VOLUME 104.9 fL (81-99); MONOCYTES # (AUTO) 0.8 (0.2-0.8); MONOCYTES % 13.6 % (4.4-11.3); NEUTROPHILS # (AUTO) 1.2 (2.1-6.9); NEUTROPHILS % 19.2 % (38.7-80.0); RED BLOOD COUNT 2.05 x10e6/uL (4.3-5.7); RED CELL DISTRIBUTION WIDTH 17.2 % (11.7-14.4); WHITE BLOOD COUNT 6.09 x10e3/uL (4.8-10.8)
[2023-02-04 07:07] LABS: ALBUMIN 2.1 g/dL (3.5-5.0); ALBUMIN/GLOBULIN RATIO 0.6 (0.8-2.0); ANION GAP 15.7 mmol/L (8-16); BILIRUBIN,TOTAL 3.1 mg/dL (0.2-1.2); CALCIUM 7.9 mg/dL (8.4-10.2); CREATININE, SERUM 3.04 mg/dL (0.72-1.25); HEMOGLOBIN 6.6 g/dL (14.0-18.0); MAGNESIUM 1.9 MG/DL (1.3-2.1); PLATELET COUNT 18 x10e3/uL (140-360); POTASSIUM 4.7 mmol/L (3.5-5.1); TOTAL PROTEIN 5.8 g/dL (6.5-8.1)
[2023-02-04] MEDS: BUDESONIDE 0.25 MG/2 ML NEB NEB SCH ×2 (07:55→19:20)
[2023-02-04] MEDS ORDERED: ACETAMINOPHEN 325 MG TAB PO STA (08:46)
[2023-02-04 08:51] LABS: BASOPHILS % (MANUAL) 1 % (0-1.5); BLAST CELLS % MANUAL 4; LYMPHOCYTES % (MANUAL) 65 % (19-48); MONOCYTES % (MANUAL) 2 % (3.4-9.0); NEUTROPHILS % (MANUAL) 23 % (40-74); NUCLEATED RED BLOOD CELLS 1; REACTIVE LYMPHOCYTES 5
[2023-02-04 08:54] LABS: ANISOCYTOSIS SLIGHT; PLATELET ESTIMATE MARKEDLY DECREASED; PLATELET MORPHOLOGY COMMENT NORMAL; RBC MORPHOLOGY COMMENT NORMAL
[2023-02-04] MEDS: DOCUSATE SODIUM 100 MG CAP PO SCH ×2 (09:00→16:36)
[2023-02-04] MEDS ORDERED: SODIUM CHLORIDE 0.9% 250ML 250 ML IV ONE (09:00)
[2023-02-04] MEDS ORDERED: DEXAMETHASONE SOD PHOS 10 MG/1 ML VIAL IV ONE (09:00)
[2023-02-04 09:03] LABS: EOSINOPHIL SMEAR,URINE PRESENT (NONE SEEN)
[2023-02-04] MEDS: FINASTERIDE 5 MG TAB PO SCH (09:15)
[2023-02-04] MEDS: ALLOPURINOL 100 MG TAB PO SCH (09:15)
[2023-02-04] MEDS: FLUCONAZOLE 100 MG TAB PO SCH (09:15)
[2023-02-04] MEDS: PANTOPRAZOLE SOD 40 MG TABEC PO SCH (09:15)
[2023-02-04] MEDS: TAMSULOSIN HCL 0.4 MG CAP PO SCH (09:15)
[2023-02-04] MEDS: CITALOPRAM HYDROBROMIDE 20 MG TAB PO SCH (09:15)
[2023-02-04] MEDS: BALSAM PERU/CASTOR OIL 60 GM OINT...G. TP SCH (09:19)
[2023-02-04] MEDS: IRON SUCROSE 100 MG in SODIUM CHLORIDE 0.9% 100 ML IV SCH (09:20)
[2023-02-04] MEDS: ALPRAZOLAM 0.25 MG TAB PO PRN ×2 (11:39→22:36)
[2023-02-04] MEDS: EPOETIN ALFA-EPBX 10,000 UNIT/ML VIAL SC SCH (11:41)
[2023-02-04] MEDS: FUROSEMIDE INJ 10 MG/ML 2 ML VIAL IV PRN (16:36)
[2023-02-05] VITALS (11 sets, daily range): BP systolic 106–145; BP diastolic 49–67; PULSE 68–92; RESP 20–24; TEMP 97.5–98.8; O2SAT 96–100
[2023-02-05] MEDS: ALBUTEROL/IPRATROPIUM 3 ML NEB NEB SCH ×4 (00:48→19:04)
[2023-02-05] MEDS: ACETAMINOPHEN 325 MG TAB PO PRN ×2 (05:17→14:12)
[2023-02-05 06:30] LABS: HEMATOCRIT 23.7 % (38.2-49.6); HEMOGLOBIN 7.3 g/dL (14.0-18.0); LYMPHOCYTES # (AUTO) 2.6 (1.0-3.2); LYMPHOCYTES % 52.4 % (18.0-39.1); MEAN CORPUSCULAR HEMOGLOBIN 32.4 pg (28-32); MEAN CORPUSCULAR HGB CONC 30.8 g/dL (31-35); MEAN CORPUSCULAR VOLUME 105.3 fL (81-99); MONOCYTES # (AUTO) 0.4 (0.2-0.8); MONOCYTES % 8.4 % (4.4-11.3); NEUTROPHILS # (AUTO) 1.8 (2.1-6.9); NEUTROPHILS % 36.8 % (38.7-80.0); RED BLOOD COUNT 2.25 x10e6/uL (4.3-5.7); RED CELL DISTRIBUTION WIDTH 17.7 % (11.7-14.4)
[2023-02-05] MEDS: BUDESONIDE 0.25 MG/2 ML NEB NEB SCH ×2 (06:50→19:05)
[2023-02-05 07:00] LABS: ANION GAP 16.5 mmol/L (8-16); CALCIUM 8.2 mg/dL (8.4-10.2); CREATININE, SERUM 2.92 mg/dL (0.72-1.25); POTASSIUM 5.5 mmol/L (3.5-5.1)
[2023-02-05 07:01] LABS: PLATELET COUNT 11 x10e3/uL (140-360)
[2023-02-05] MEDS: PANTOPRAZOLE SOD 40 MG TABEC PO SCH (09:04)
[2023-02-05] MEDS: CITALOPRAM HYDROBROMIDE 20 MG TAB PO SCH (09:57)
[2023-02-05] MEDS: DOCUSATE SODIUM 100 MG CAP PO SCH ×2 (09:58→17:51)
[2023-02-05] MEDS: FINASTERIDE 5 MG TAB PO SCH (09:58)
[2023-02-05] MEDS: IRON SUCROSE 100 MG in SODIUM CHLORIDE 0.9% 100 ML IV SCH (09:58)
[2023-02-05] MEDS: ALLOPURINOL 100 MG TAB PO SCH (09:58)
[2023-02-05] MEDS: TAMSULOSIN HCL 0.4 MG CAP PO SCH (09:58)
[2023-02-05] MEDS: FLUCONAZOLE 100 MG TAB PO SCH (10:15)
[2023-02-05] MEDS: BALSAM PERU/CASTOR OIL 60 GM OINT...G. TP SCH (10:15)
[2023-02-05 10:31] LABS: BLAST CELLS % MANUAL 3; LYMPHOCYTES % (MANUAL) 50 % (19-48); MONOCYTES % (MANUAL) 6 % (3.4-9.0); NEUTROPHILS % (MANUAL) 40 % (40-74); NUCLEATED RED BLOOD CELLS 3; PLATELET ESTIMATE MARKEDLY DECREASED; PLATELET MORPHOLOGY COMMENT NORMAL; RBC MORPHOLOGY COMMENT NORMAL; REACTIVE LYMPHOCYTES 1
[2023-02-05] MEDS ORDERED: SODIUM CHLORIDE 0.9% 250ML 250 ML ONE (11:40)
[2023-02-05] MEDS: ALPRAZOLAM 0.25 MG TAB PO PRN (14:00)
[2023-02-05] MEDS: FUROSEMIDE INJ 10 MG/ML 4 ML VIAL IV SCH (18:04)
[2023-02-06] VITALS (10 sets, daily range): BP systolic 105–166; BP diastolic 62–83; PULSE 72–100; RESP 18–22; TEMP 97.7–98.7; O2SAT 93–100
[2023-02-06] MEDS: ALBUTEROL/IPRATROPIUM 3 ML NEB NEB SCH ×4 (01:21→20:00)
[2023-02-06] MEDS: BUDESONIDE 0.25 MG/2 ML NEB NEB SCH ×2 (07:25→20:01)
[2023-02-06 08:05] LABS: ANION GAP 17.4 mmol/L (8-16); CALCIUM 8.5 mg/dL (8.4-10.2); CREATININE, SERUM 2.46 mg/dL (0.72-1.25); PHOSPHORUS 3.4 MG/DL (2.3-4.7); POTASSIUM 5.4 mmol/L (3.5-5.1)
[2023-02-06] MEDS: CITALOPRAM HYDROBROMIDE 20 MG TAB PO SCH (08:14)
[2023-02-06] MEDS: PANTOPRAZOLE SOD 40 MG TABEC PO SCH (08:15)
[2023-02-06] MEDS: ALLOPURINOL 100 MG TAB PO SCH (08:15)
[2023-02-06] MEDS: TAMSULOSIN HCL 0.4 MG CAP PO SCH (08:15)
[2023-02-06] MEDS: FUROSEMIDE INJ 10 MG/ML 4 ML VIAL IV SCH ×2 (08:15→20:51)
[2023-02-06] MEDS: FINASTERIDE 5 MG TAB PO SCH (08:15)
[2023-02-06] MEDS: IRON SUCROSE 100 MG in SODIUM CHLORIDE 0.9% 100 ML IV SCH (08:16)
[2023-02-06] MEDS: DOCUSATE SODIUM 100 MG CAP PO SCH ×2 (08:17→16:29)
[2023-02-06] MEDS: BALSAM PERU/CASTOR OIL 60 GM OINT...G. TP SCH (08:23)
[2023-02-06 09:13] LABS: BASOPHILS % 0.2 % (0.0-1.0); EOSINOPHILS % 0.2 % (0.0-6.0); LYMPHOCYTES # (AUTO) 2.1 (1.0-3.2); LYMPHOCYTES % 51.1 % (18.0-39.1); MEAN CORPUSCULAR HEMOGLOBIN 33.2 pg (28-32); MEAN CORPUSCULAR VOLUME 107.1 fL (81-99); MONOCYTES # (AUTO) 0.6 (0.2-0.8); MONOCYTES % 14.7 % (4.4-11.3); NEUTROPHILS # (AUTO) 1.2 (2.1-6.9); NEUTROPHILS % 28.6 % (38.7-80.0); RED BLOOD COUNT 2.11 x10e6/uL (4.3-5.7); RED CELL DISTRIBUTION WIDTH 17.7 % (11.7-14.4); WHITE BLOOD COUNT 4.07 x10e3/uL (4.8-10.8)
[2023-02-06 09:39] LABS: PLATELET COUNT 12 x10e3/uL (140-360)
[2023-02-06 09:40] LABS: HEMATOCRIT 22.6 % (38.2-49.6)
[2023-02-06] MEDS: FLUCONAZOLE 100 MG TAB PO SCH (10:14)
[2023-02-06] MEDS: EPOETIN ALFA-EPBX 10,000 UNIT/ML VIAL SC SCH (10:14)
[2023-02-06 12:07] LABS: BAND NEUTROPHILS % (MANUAL) 1 %; BLAST CELLS % MANUAL 3; LYMPHOCYTES % (MANUAL) 55 % (19-48); MONOCYTES % (MANUAL) 9 % (3.4-9.0); NEUTROPHILS % (MANUAL) 32 % (40-74); NUCLEATED RED BLOOD CELLS 4
[2023-02-06 12:08] LABS: ANISOCYTOSIS SLIGHT; POLYCHROMASIA FEW
[2023-02-06 12:10] LABS: PLATELET ESTIMATE MARKEDLY DECREASED; PLATELET MORPHOLOGY COMMENT NORMAL; RBC MORPHOLOGY COMMENT NORMAL
[2023-02-06] MEDS: ACETAMINOPHEN 325 MG TAB PO PRN (14:57)
[2023-02-06] MEDS: ALPRAZOLAM 0.25 MG TAB PO PRN ×2 (20:57)
[2023-02-07] VITALS (8 sets, daily range): BP systolic 136–152; BP diastolic 53–68; PULSE 63–97; RESP 20–22; TEMP 97.7–99.1; O2SAT 99–100
[2023-02-07] MEDS: ALBUTEROL/IPRATROPIUM 3 ML NEB NEB SCH ×4 (02:12→19:23)
[2023-02-07] MEDS ORDERED: SODIUM CHLORIDE 0.9% 250ML 250 ML ONE (04:15)
[2023-02-07] MEDS: ALPRAZOLAM 0.25 MG TAB PO PRN ×2 (04:27→13:48)
[2023-02-07] MEDS: BUDESONIDE 0.25 MG/2 ML NEB NEB SCH ×2 (06:10→19:24)
[2023-02-07 06:13] LABS: ANION GAP 16.2 mmol/L (8-16); CALCIUM 8.4 mg/dL (8.4-10.2); CREATININE, SERUM 2.35 mg/dL (0.72-1.25); POTASSIUM 5.2 mmol/L (3.5-5.1)
[2023-02-07] MEDS: TAMSULOSIN HCL 0.4 MG CAP PO SCH (08:54)
[2023-02-07] MEDS: PANTOPRAZOLE SOD 40 MG TABEC PO SCH (08:54)
[2023-02-07] MEDS: IRON SUCROSE 100 MG in SODIUM CHLORIDE 0.9% 100 ML IV SCH (08:54)
[2023-02-07] MEDS: FINASTERIDE 5 MG TAB PO SCH (08:55)
[2023-02-07] MEDS: ALLOPURINOL 100 MG TAB PO SCH (08:55)
[2023-02-07] MEDS: CITALOPRAM HYDROBROMIDE 20 MG TAB PO SCH (08:56)
[2023-02-07] MEDS: FUROSEMIDE INJ 10 MG/ML 4 ML VIAL IV SCH ×2 (08:56→20:43)
[2023-02-07] MEDS: BALSAM PERU/CASTOR OIL 60 GM OINT...G. TP SCH (08:56)
[2023-02-07] MEDS: DOCUSATE SODIUM 100 MG CAP PO SCH ×2 (08:57→15:30)
[2023-02-07] MEDS: FLUCONAZOLE 100 MG TAB PO SCH (10:38)
[2023-02-07] MEDS: METHYLPREDNISOLONE SOD SUCC 125 MG/2ML VIAL IV SCH ×3 (10:43→22:24)
[2023-02-08] VITALS (9 sets, daily range): BP systolic 134–179; BP diastolic 53–77; PULSE 56–108; RESP 18–25; TEMP 97.4–98.1; O2SAT 0–100
[2023-02-08] MEDS: ALBUTEROL/IPRATROPIUM 3 ML NEB NEB SCH ×4 (01:14→18:32)
[2023-02-08] MEDS: METHYLPREDNISOLONE SOD SUCC 125 MG/2ML VIAL IV SCH ×3 (05:05→22:00)
[2023-02-08 05:57] LABS: LYMPHOCYTES # (AUTO) 1.6 (1.0-3.2); LYMPHOCYTES % 51.3 % (18.0-39.1); MEAN CORPUSCULAR HEMOGLOBIN 32.7 pg (28-32); MEAN CORPUSCULAR HGB CONC 30.6 g/dL (31-35); MEAN CORPUSCULAR VOLUME 106.9 fL (81-99); MONOCYTES # (AUTO) 0.3 (0.2-0.8); MONOCYTES % 8.4 % (4.4-11.3); NEUTROPHILS # (AUTO) 1.2 (2.1-6.9); NEUTROPHILS % 38.7 % (38.7-80.0); RED BLOOD COUNT 2.02 x10e6/uL (4.3-5.7); RED CELL DISTRIBUTION WIDTH 16.7 % (11.7-14.4); WHITE BLOOD COUNT 3.08 x10e3/uL (4.8-10.8)
[2023-02-08 06:13] LABS: HEMATOCRIT 21.6 % (38.2-49.6); HEMOGLOBIN 6.6 g/dL (14.0-18.0); PLATELET COUNT 8 x10e3/uL (140-360)
[2023-02-08 06:25] LABS: ALBUMIN/GLOBULIN RATIO 0.5 (0.8-2.0); ANION GAP 17.6 mmol/L (8-16); BILIRUBIN,TOTAL 1.8 mg/dL (0.2-1.2); CALCIUM 8.6 mg/dL (8.4-10.2); CREATININE, SERUM 2.51 mg/dL (0.72-1.25); POTASSIUM 5.6 mmol/L (3.5-5.1); TOTAL PROTEIN 6.1 g/dL (6.5-8.1)
[2023-02-08] MEDS: BUDESONIDE 0.25 MG/2 ML NEB NEB SCH ×2 (07:17→18:47)
[2023-02-08] MEDS ORDERED: SODIUM CHLORIDE 0.9% 250ML 250 ML IV ONE (09:00)
[2023-02-08 09:09] LABS: BAND NEUTROPHILS % (MANUAL) 1 %; BLAST CELLS % MANUAL 1; LYMPHOCYTES % (MANUAL) 38 % (19-48); MONOCYTES % (MANUAL) 10 % (3.4-9.0); NEUTROPHILS % (MANUAL) 50 % (40-74)
[2023-02-08 09:10] LABS: PLATELET ESTIMATE MARKEDLY DECREASED; PLATELET MORPHOLOGY COMMENT NORMAL; RBC MORPHOLOGY COMMENT NORMAL
[2023-02-08] MEDS: TAMSULOSIN HCL 0.4 MG CAP PO SCH (09:14)
[2023-02-08] MEDS: ALPRAZOLAM 0.25 MG TAB PO PRN ×2 (09:14→18:20)
[2023-02-08] MEDS: FLUCONAZOLE 100 MG TAB PO SCH (09:14)
[2023-02-08] MEDS: PANTOPRAZOLE SOD 40 MG TABEC PO SCH (09:14)
[2023-02-08] MEDS: FINASTERIDE 5 MG TAB PO SCH (09:14)
[2023-02-08] MEDS: CITALOPRAM HYDROBROMIDE 20 MG TAB PO SCH (09:14)
[2023-02-08] MEDS: ALLOPURINOL 100 MG TAB PO SCH (09:14)
[2023-02-08] MEDS: FUROSEMIDE INJ 10 MG/ML 4 ML VIAL IV SCH ×2 (09:15→22:01)
[2023-02-08] MEDS: DOCUSATE SODIUM 100 MG CAP PO SCH ×2 (09:16→17:00)
[2023-02-08] MEDS: BALSAM PERU/CASTOR OIL 60 GM OINT...G. TP SCH (11:24)
[2023-02-08] MEDS ORDERED: SODIUM CHLORIDE 0.9% 250ML 250 ML ONE (12:30)
[2023-02-08] MEDS ORDERED: SOD POLYSTYRENE SULFONATE SUSP 15 GM/60 ML BTL PO ONE (12:45)
[2023-02-09] VITALS (10 sets, daily range): BP systolic 98–142; BP diastolic 43–80; PULSE 54–91; RESP 17–23; TEMP 97.3–98.3; O2SAT 91–100
[2023-02-09] MEDS: ALBUTEROL/IPRATROPIUM 3 ML NEB NEB SCH ×4 (00:35→19:09)
[2023-02-09] MEDS: METHYLPREDNISOLONE SOD SUCC 125 MG/2ML VIAL IV SCH ×3 (04:53→20:56)
[2023-02-09] MEDS: BUDESONIDE 0.25 MG/2 ML NEB NEB SCH ×2 (07:42→19:10)
[2023-02-09] MEDS: BALSAM PERU/CASTOR OIL 60 GM OINT...G. TP SCH (09:00)
[2023-02-09] MEDS: DOCUSATE SODIUM 100 MG CAP PO SCH ×2 (09:00→17:00)
[2023-02-09 09:32] LABS: BASOPHILS % 0.3 % (0.0-1.0); HEMATOCRIT 23.1 % (38.2-49.6); LYMPHOCYTES # (AUTO) 1.4 (1.0-3.2); LYMPHOCYTES % 42.9 % (18.0-39.1); MEAN CORPUSCULAR HGB CONC 30.3 g/dL (31-35); MEAN CORPUSCULAR VOLUME 105.5 fL (81-99); MONOCYTES # (AUTO) 0.2 (0.2-0.8); MONOCYTES % 6.6 % (4.4-11.3); NEUTROPHILS # (AUTO) 1.6 (2.1-6.9); NEUTROPHILS % 48.7 % (38.7-80.0); PLATELET COUNT 13 x10e3/uL (140-360); RED BLOOD COUNT 2.19 x10e6/uL (4.3-5.7); RED CELL DISTRIBUTION WIDTH 17.9 % (11.7-14.4); WHITE BLOOD COUNT 3.31 x10e3/uL (4.8-10.8)
[2023-02-09] MEDS: EPOETIN ALFA-EPBX 10,000 UNIT/ML VIAL SC SCH (09:47)
[2023-02-09] MEDS: TAMSULOSIN HCL 0.4 MG CAP PO SCH (09:48)
[2023-02-09] MEDS: FLUCONAZOLE 100 MG TAB PO SCH (09:48)
[2023-02-09] MEDS: CITALOPRAM HYDROBROMIDE 20 MG TAB PO SCH (09:48)
[2023-02-09] MEDS: ALLOPURINOL 100 MG TAB PO SCH (09:48)
[2023-02-09] MEDS: PANTOPRAZOLE SOD 40 MG TABEC PO SCH (09:48)
[2023-02-09] MEDS: FUROSEMIDE INJ 10 MG/ML 4 ML VIAL IV SCH ×2 (09:48→20:55)
[2023-02-09] MEDS: FINASTERIDE 5 MG TAB PO SCH (09:48)
[2023-02-09] MEDS: ALPRAZOLAM 0.25 MG TAB PO PRN ×2 (09:58→18:11)
[2023-02-09 11:50] LABS: BAND NEUTROPHILS % (MANUAL) 4 %; LYMPHOCYTES % (MANUAL) 36 % (19-48); MONOCYTES % (MANUAL) 4 % (3.4-9.0); NEUTROPHILS % (MANUAL) 50 % (40-74); PLATELET ESTIMATE MARKEDLY DECREASED; PLATELET MORPHOLOGY COMMENT NORMAL; POLYCHROMASIA FEW; RBC MORPHOLOGY COMMENT ABNORMAL; REACTIVE LYMPHOCYTES 6
[2023-02-09 11:51] LABS: HYPOCHROMASIA SLIGHT
[2023-02-09] MEDS ORDERED: SODIUM CHLORIDE 0.9% 250ML 250 ML IV ONE (13:15)
[2023-02-09] MEDS ORDERED: SODIUM CHLORIDE 0.9% 250ML 250 ML ONE (14:29)
[2023-02-10] VITALS (9 sets, daily range): BP systolic 116–149; BP diastolic 50–77; PULSE 65–89; RESP 18–22; TEMP 97.4–98; O2SAT 95–100
[2023-02-10] MEDS: ALBUTEROL/IPRATROPIUM 3 ML NEB NEB SCH ×3 (03:40→13:11)
[2023-02-10] MEDS: METHYLPREDNISOLONE SOD SUCC 125 MG/2ML VIAL IV SCH ×2 (05:13→13:59)
[2023-02-10] MEDS: BUDESONIDE 0.25 MG/2 ML NEB NEB SCH (07:43)
[2023-02-10] MEDS: PANTOPRAZOLE SOD 40 MG TABEC PO SCH (08:21)
[2023-02-10] MEDS: DOCUSATE SODIUM 100 MG CAP PO SCH ×2 (10:08→17:00)
[2023-02-10] MEDS: FINASTERIDE 5 MG TAB PO SCH (10:08)
[2023-02-10] MEDS: FUROSEMIDE INJ 10 MG/ML 4 ML VIAL IV SCH (10:08)
[2023-02-10] MEDS: CITALOPRAM HYDROBROMIDE 20 MG TAB PO SCH (10:08)
[2023-02-10] MEDS: ALLOPURINOL 100 MG TAB PO SCH (10:08)
[2023-02-10] MEDS: FLUCONAZOLE 100 MG TAB PO SCH (10:08)
[2023-02-10] MEDS: TAMSULOSIN HCL 0.4 MG CAP PO SCH (10:08)
[2023-02-10] MEDS: BALSAM PERU/CASTOR OIL 60 GM OINT...G. TP SCH (10:19)
[2023-02-10] MEDS: ALPRAZOLAM 0.25 MG TAB PO PRN (13:59)
== END 2023-02-10 18:43 | disposition hospice, home (50) | DRG 840 ==
LOC: ER 15:59 → ERHOLD 17:43 → MED/SURG3 19:54
PROVIDERS: ADMIT Internal Medicine; ATTEND Internal Medicine
PROC: 30233R1 Transfusion of Nonautologous Platelets into Peripheral Vein, Percutaneous Approach (ICD-10-PCS; principal; 2023-02-03)
PROC: 30233N1 Transfusion of Nonautologous Red Blood Cells into Peripheral Vein, Percutaneous Approach (ICD-10-PCS; 2023-02-03)
PROC: 3E04329 Introduction of Other Anti-infective into Central Vein, Percutaneous Approach (ICD-10-PCS; 2023-02-10)
DX: C85.10 Unspecified B-cell lymphoma, unspecified site (principal); D61.810 Antineoplastic chemotherapy induced pancytopenia; G92.8 Other toxic encephalopathy; J96.21 Acute and chronic respiratory failure with hypoxia; I50.33 Acute on chronic diastolic (congestive) heart failure; I21.A1 Myocardial infarction type 2; D84.9 Immunodeficiency, unspecified; N17.9 Acute kidney failure, unspecified; I13.0 Hypertensive heart and chronic kidney disease with heart failure and stage 1 through stage 4 chronic kidney disease, or unspecified chronic kidney disease; Z68.42 Body mass index [BMI] 45.0-49.9, adult; E66.2 Morbid (severe) obesity with alveolar hypoventilation; B37.49 Other urogenital candidiasis; D64.81 Anemia due to antineoplastic chemotherapy; J84.10 Pulmonary fibrosis, unspecified; D63.1 Anemia in chronic kidney disease; Z51.5 Encounter for palliative care; E87.5 Hyperkalemia; I25.10 Atherosclerotic heart disease of native coronary artery without angina pectoris; J44.9 Chronic obstructive pulmonary disease, unspecified; D69.59 Other secondary thrombocytopenia; Z99.81 Dependence on supplemental oxygen; K57.90 Diverticulosis of intestine, part unspecified, without perforation or abscess without bleeding; D50.9 Iron deficiency anemia, unspecified; Z66 Do not resuscitate; N40.0 Benign prostatic hyperplasia without lower urinary tract symptoms; F32.A Depression, unspecified; F41.9 Anxiety disorder, unspecified; Z96.659 Presence of unspecified artificial knee joint; D69.6 Thrombocytopenia, unspecified; R33.9 Retention of urine, unspecified; N18.31 Chronic kidney disease, stage 3a; R53.1 Weakness; R42 Dizziness and giddiness; E86.0 Dehydration; R39.2 Extrarenal uremia; T45.1X5A Adverse effect of antineoplastic and immunosuppressive drugs, initial encounter; Z86.718 Personal history of other venous thrombosis and embolism; Y92.89 Other specified places as the place of occurrence of the external cause; Z79.69 Long term (current) use of other immunomodulators and immunosuppressants; Z82.49 Family history of ischemic heart disease and other diseases of the circulatory system; Z20.822 Contact with and (suspected) exposure to COVID-19
CPT/HCPCS: 36415; 71045; 71250; 74176; 76770; 80048; 80053; 81001; 81015; 82550; 82570; 82607; 82746; 82948; 83036; 83540; 83605; 83690; 83735; 83880; 84100; 84156; 84300; 84443; 84466; 84484; 85025; 85045; 85610; 86850; 86900; 86920; 87040; 87086; 93005; 93306; 94640; 94660; 94799; 99252; 99284; J1100; J1756; J1940; J2543; J2930; J7030; J7050; J7799; P9016; P9034; U0002